=== PATIENT | male | born 1935 | race African-American/Black ===

== ENCOUNTER 2017-03-28 13:10 | Inpatient (IN) | payer MEDICARE, MEDICAID ==
[~2017-03-28] VITALS: Ht 172.7 cm; Wt 70.3 kg
[2017-03-29] VITALS (16 sets, daily range): BP systolic 106–122; BP diastolic 60–73
[2017-03-29] MEDS ORDERED: COMBIVENT RESPIM4 GM IH (02:00)
[2017-03-29] MEDS ORDERED: ALLOPURINOL300 M1 ORAL (02:01)
[2017-03-29] MEDS ORDERED: FLOMAX0.4 MG ORAL (02:04)
[2017-03-29] MEDS ORDERED: LOMOTIL TABLET1 EAC1 PO (02:09)
[2017-03-29] MEDS ORDERED: LOMOTIL TABLET1 EACH ORAL ×2 (02:10→02:12)
[2017-03-29] MEDS ORDERED: FUROSEMIDE40 MG ORAL (02:14)
[2017-03-29] MEDS ORDERED: NORCO 5-325 TA1 EACH ORAL (02:16)
[2017-03-29] MEDS ORDERED: BENAZEPRIL HCL40 MG ORAL (02:18)
[2017-03-29] MEDS ORDERED: METOPROLOL-HCT1 EAC3 ORAL (02:20)
[2017-03-29] MEDS ORDERED: ASPIR 8181 MG ORAL (02:21)
[2017-03-29] MEDS ORDERED: ADVAIR 250-501 EACH INH (02:25)
[2017-03-29 05:39] LABS: BASOPHILS % (AUTO) 0.7 % (0.0-2.0); LYMPHOCYTES % (AUTO) 27.4 % (20.0-45.0); MEAN CORPUSCULAR HEMOGLOBIN 29.2 PG (27.0-31.0); MEAN CORPUSCULAR HGB CONC 30.8 G/DL (32.0-36.0); MEAN CORPUSCULAR VOLUME 95 FL (80-99); MEAN PLATELET VOLUME 6.3 FL (6.5-10.1); NEUTROPHILS % (AUTO) 58.9 % (45.0-75.0); PLATELET COUNT 174 K/UL (150-450); RED BLOOD COUNT 3.48 M/UL (4.70-6.10); RED CELL DISTRIBUTION WIDTH 18.3 % (11.6-14.8)
[2017-03-29 05:51] LABS: INR 1.3 (0.9-1.1); PROTHROMBIN TIME 13.4 SEC (9.30-11.50)
[2017-03-29 05:54] LABS: ALANINE AMINOTRANSFERASE 13 U/L (3-41); ALBUMIN/GLOBULIN RATIO 1.3 (1.0-2.7); ANION GAP 14 (5-15); ASPARTATE AMINO TRANSFERASE 21 U/L (5-40); CALCIUM 9.3 mg/dL (8.6-10.2); CARBON DIOXIDE 26 mEQ/L (20-30); CHLORIDE 101 mEQ/L (98-107); CREATININE 2.2 mg/dL (0.7-1.2); HEMOLYSIS 3; POTASSIUM 3.6 mEQ/L (3.4-4.9); SODIUM 141 mEQ/L (135-145); TOTAL PROTEIN 6.5 g/dL (6.6-8.7)
[2017-03-29] MEDS ORDERED: ceFAZolin 1gm in D5W 55ml IVPB SCH (11:00)
--- NOTE | 2017-03-29 11:32 | Consultation ---
Consult Note Assessment/Plan Full note dictated #[id number] DANIELLE HENRY Mar 29, 2017 11:32
--- NOTE | 2017-03-29 11:33 | Pre-Procedure Note/Attestation ---
Pre-Procedure Note/Attestation Complete Prior to Procedure Planned Procedure: left Procedure Narrative: ICD gen replacement and possible lead revision ( RV lead) Indications for Procedure Pre-Operative Diagnosis: ICD at end of service/ lead malfunction Attestation I attest that I discussed the nature of the procedure; its benefits; risks and complications; and alternatives (and the risks and benefits of such alternatives ), prior to the procedure, with the patient (or the patient's legal labor union business representative). I attest that, if there was a reasonable possibility of needing a blood transfusion, the patient (or the patient's legal labor union business representative) was given the [place] Department [employer] [facility] standardized written summary, pursuant to the Atif Vick Blood Safety Act ([place] Health and Safety Code # 1645, as amended). I attest that I re-evaluated the patient just prior to the surgery and that there has been no change in the patient's H&P, except as documented below: none DANIELLE HENRY Mar 29, 2017 11:33
[2017-03-29] MEDS ORDERED: ceFAZolin sod 2 GM in D5W 110 ML IVPB PRN (12:00)
[2017-03-29] MEDS ORDERED: Sterile Water Irrig 1000ml IRRIG ONE (12:30)
[2017-03-29] MEDS ORDERED: LR 1000ml ONE (12:30)
[2017-03-29] MEDS ORDERED: Propofol 10mg/ml 100ml btl IV ONE (12:30)
[2017-03-29] MEDS ORDERED: Midazolam 2mg/2ml Inj ONE (12:30)
[2017-03-29] MEDS ORDERED: fentaNYL 100 mcg/2 mL IV ONE (12:30)
[2017-03-29] MEDS ORDERED: NS Irrig 1000ml ONE (12:30)
[2017-03-29] MEDS ORDERED: Bupivacaine 0.25% Inj 30ml INJ ONE (12:35)
[2017-03-29] MEDS ORDERED: Isovue-M 300 15ml INJ ONE (12:35)
[2017-03-29] MEDS ORDERED: Bacitracin 50000 Units Vial ONE (12:35)
[2017-03-29] MEDS ORDERED: Lidocaine 1% Plain 30 ml INJ ONE (12:37)
[2017-03-29] MEDS ORDERED: LR 1000ml 1,000 ML IVLG SCH (13:22)
[2017-03-29] MEDS ORDERED: ceFAZolin sod 1 GM in D5W 55 ML IV SCH (14:00)
--- NOTE | 2017-03-29 14:05 | Anethesia Preoperative Eval ---
Anesthesia Pre-op PMH/ROS General Date of Evaluation: Mar 29, 2017 Time of Evaluation: 12:36 Anesthesiologist: Kim ASA Score: ASA 3 Mallampati Score Class I : Soft palate, uvula, fauces, pillars visible Class II: Soft palate, uvula, fauces visible Class III: Soft palate, base of uvula visible Class IV: Only hard plate visible Mallampati Classification: Class II Surgeon: Christiano Diagnosis: Defibrillator malfunction Surgical Procedure: Replacement of defibrillator/pacemaker Family History: no anesthesia problems Allergies: Coded Allergies: No Known Allergies (Verified Allergy, Unknown, 01/15/11) Medications: see eMAR Past Medical History Cardiovascular: Reports: CAD, HTN, arrhythmia - s/p defibrillator/PPM Pulmonary: Denies: COPD, JUAN, asthma, other Gastrointestinal/Genitourinary: Denies: CRI, ESRD, GERD, other Neurologic/Psychiatric: Denies: CVA, TIA, dementia, depression/anxiety, other Endocrine: Denies: DM, hypothyroidism, other, steroids HEENT: Denies: SYCUAN (L), SYCUAN (R), cataract (L), cataract (R), glaucoma, other Hematology/Immune: Denies: DVT, anemia, bleeding disorder, other Musculoskeletal/Integumentary: Reports: DJD, OA, Denies: DDD, RA, edema, other PMH Narrative: CAD, dysrhythmia (s/p PPM/defibrillator), OA, gout PSxH Narrative: PPM, right THR Anesthesia Pre-op Phys. Exam Physician Exam Last Vital Signs Date Time Temp Pulse Resp B/P Pulse Ox O2 Delivery O2 Flow Rate FiO2 03/29/17 11:43 97.3 63 18 117/66 99 Room Air Constitutional: NAD Neurologic: CN 2-12 intact Cardiovascular: RRR, no M/R/G Respiratory: CTA Gastrointestinal: S/NT/ND Airway Exam Mallampati Score: Class II MO: full ROM: full Dentures: lower, upper Anesthesia Pre-op A/P Labs Hematology Test 03/29/17 05:30 White Blood Count 6.0 K/UL (4.8-10.8) Red Blood Count 3.48 M/UL (4.70-6.10) L Hemoglobin 10.2 G/DL (14.2-18.0) L Hematocrit 33.0 % (42.0-52.0) L Mean Corpuscular Volume 95 FL (80-99) Mean Corpuscular Hemoglobin 29.2 PG (27.0-31.0) Mean Corpuscular Hemoglobin Concent 30.8 G/DL (32.0-36.0) L Red Cell Distribution Width 18.3 % (11.6-14.8) H Platelet Count 174 K/UL (150-450) Mean Platelet Volume 6.3 FL (6.5-10.1) L Neutrophils (%) (Auto) 58.9 % (45.0-75.0) Lymphocytes (%) (Auto) 27.4 % (20.0-45.0) Monocytes (%) (Auto) 12.0 % (1.0-10.0) H Eosinophils (%) (Auto) 1.0 % (0.0-3.0) Basophils (%) (Auto) 0.7 % (0.0-2.0) Coagulation Test 03/29/17 05:30 Prothrombin Time 13.4 SEC (9.30-11.50) H Prothromb Time International Ratio 1.3 (0.9-1.1) H Activated Partial Thromboplast Time 28 SEC (23-33) Chemistry Test 03/29/17 05:30 Sodium Level 141 mEQ/L (135-145) Potassium Level 3.6 mEQ/L (3.4-4.9) Chloride Level 101 mEQ/L (98-107) Carbon Dioxide Level 26 mEQ/L (20-30) Anion Gap 14 (5-15) Blood Urea Nitrogen 40 mg/dL (7-23) H Creatinine 2.2 mg/dL (0.7-1.2) H Estimat Glomerular Filtration Rate mL/min (>60) Glucose Level 119 mg/dL (74-106) H Calcium Level 9.3 mg/dL (8.6-10.2) Total Bilirubin 0.4 mg/dL (0.0-1.2) Aspartate Amino Transf (AST/SGOT) 21 U/L (5-40) Alanine Aminotransferase (ALT/SGPT) 13 U/L (3-41) Alkaline Phosphatase 49 U/L (40-129) Pro-B-Type Natriuretic Peptide 5433 pg/mL (0-450) H Total Protein 6.5 g/dL (6.6-8.7) L Albumin 3.7 g/dL (3.5-5.2) Globulin 2.8 g/dL Albumin/Globulin Ratio 1.3 (1.0-2.7) Studies Pre-op Studies: EKG - SR with RBBB Risk Assessment & Plan Assessment: ASA 3 for defibrillator replacement Plan: MAC converted to GA with LMA Status Change Before Surgery: No Pre-Antibiotics Drug: Ancef Given Within 1 Hr of Incision: Yes Time Given: 13:00 HELADIO CARVAJAL M.D. Mar 29, 2017 14:05
--- NOTE | 2017-03-29 14:06 | Immediate Post-Op Evaluation ---
Immediate Post-Op Evalulation Immediate Post-Op Evalulation Procedure: Defibrillator/PPM replacement Date of Evaluation: Mar 29, 2017 Time of Evaluation: 15:10 IV Fluids: 550 Estimated Blood Loss: 20 Blood Pressure Systolic: 118 Blood Pressure Diastolic: 73 Pulse Rate: 74 Respiratory Rate: 20 O2 Sat by Pulse Oximetry: 100 Temperature (Fahrenheit): 97.1 Pain Score (1-10): 0 Nausea: No Vomiting: No Complications No complication Patient Status: reacts, patent, none Hydration Status: adequate Drug: Ancef Given Within 1 Hr of Incision: Yes Time Given: 13:00 HELADIO CARVAJAL M.D. Mar 29, 2017 14:06
[2017-03-29] MEDS ORDERED: Tylenol #3 tab (300mg/30mg) ORAL PRN (15:00)
--- NOTE | 2017-03-29 15:04 | Operative Note - PDOC ---
Operative Note Operative Note Pre-op Diagnosis: ICD at end of service/ lead malfunction Procedure: icd gen repl and lead revision Post-op Diagnosis: icd lead failure and gen at end of servic Post-op Diagnosis: same as pre-op Anesthesia: local, MAC, moderate sedation Specimen: yes Complications: none Condition: stable Estimated Blood Loss: minimal Drains: none Implant(s) used?: Yes Indications for Procedure icd at end of service and lead failure Description of Procedure see dictation DANIELLE HENRY Mar 29, 2017 15:04
[2017-03-29] MEDS: fentaNYL 100 mcg/2 mL IV PRN ×2 (15:26→15:45)
--- NOTE | 2017-03-29 16:45 | Consultation ---
DATE OF CONSULTATION: CARDIAC ELECTROPHYSIOLOGY CONSULT REASON FOR CONSULTATION: Consideration for ICD generator replacement and possible lead replacement. HISTORY OF PRESENT ILLNESS: The patient is an 82-year-old man with a history of nonischemic cardiomyopathy, systolic and diastolic dysfunction status post dual-chamber ICD ([facility]) in 2010. His device was recently checked as an outpatient after a vibratory alert was noted by the patient about one to two weeks ago. At that time, he was noted to have the device at elective replacement time. In addition, there was some over sensing of the ventricular leads. He is brought for device replacement and possible lead revision. He reports no complaint of shortness of breath, palpitations, lightheadedness or syncope. PAST MEDICAL HISTORY: As noted above. MEDICATIONS: Currently, the patient is unsure of medications however per the list he is on Vicodin one p.o. b.i.d., Combivent inhaler, allopurinol 300 mg daily, aspirin 81 mg daily, benazepril 40 mg daily, Lomotil p.r.n., Lasix 40 mg daily, hydrochlorothiazide 50 mg daily, metoprolol 25 mg b.i.d., Advair diskcus 250/50 one puff daily and Flomax 0.4 mg daily. ALLERGIES: No known drug allergies. SOCIAL HISTORY: The patient denies tobacco, alcohol, or drug use. PHYSICAL EXAMINATION: GENERAL: Alert, well-developed elderly appearing male, in no acute distress. VITAL SIGNS: Blood pressure is 106/66, pulse 64 and regular, respirations 20, and afebrile. HEENT: Normocephalic and atraumatic. Pupils are equal, round, and reactive to light. Sclerae anicteric. Oral mucosa are moist. NECK: Supple. There is no jugular venous distention. Carotid pulses 2+ without bruits. LUNGS: Clear to auscultation bilaterally. HEART: Regular S1 and S2 with a 2/6 systolic ejection murmur at the apex. Nonradiating. PMI is laterally displaced to the left of the midclavicular line. No S3 or S4. No rubs. ABDOMEN: Soft and nontender. No palpable mass. EXTREMITIES: No cyanosis, clubbing, or edema. LABORATORY AND DIAGNOSTIC DATA: Hemoglobin 10.2, hematocrit 33, white blood count 6000, and platelets 174,000. Sodium 141, potassium 3.6, chloride 101, bicarbonate 26, BUN 40 and creatinine 2.2. Natriuretic peptide 5433. INR 1.3 and PTT 28. EKG is pending. Telemetry shows sinus rhythm with first-degree AV block, rate of 70 beats per minute and nonspecific IVCD. Chest x-ray is pending. ASSESSMENT AND RECOMMENDATIONS: The patient is an 82-year-old man with nonischemic cardiomyopathy, status post implantable cardioverter-defibrillator placed in 2010, whose implantable cardioverter-defibrillator has reached end of service. In addition, there is noise noted on the ventricular lead suggesting over sensing. He may need lead revision as well. These procedures were explained to him and he is agreeable to proceeding. Mariama Olivo M.D. DR: HARLAN JOB#: [id number] CC:
--- NOTE | 2017-03-29 16:45 | Diagnostic Imaging Report ---
Indications: Shortness of breath Technique: Portable AP chest at 1601 Findings: Comparison: 0937 Cardiac silhouette remains enlarged. Pulmonary vasculature remains within normal limits. Lungs remain relatively clear. Mild bilateral costophrenic angle blunting persists. No pneumothorax or other new abnormality identified. IMPRESSION: No significant change from 7 hours prior--no evidence of pneumothorax
[2017-03-29] MEDS: ceFAZolin sod 1 GM in D5W 55 ML IVPB SCH (20:14)
[2017-03-29] MEDS: Heparin 5000 units/ml inj SUBQ SCH (20:16)
--- NOTE | 2017-03-29 22:00 | Operative Note - Dictated ---
DATE OF OPERATION: 03/29/2017 SURGEON: Mariama Olivo M.D. OPERATION PERFORMED: ICD generator replacement and ICD lead revision. INDICATION: ICD at end of service and lead failure. CLINICAL HISTORY: The patient is an 82-year-old man with a history of nonischemic cardiomyopathy, congestive heart failure, status post ICD placement in 2010 whose device has reached end of service. In addition, there is noise oversensing on the right ventricular lead, which resulted in inappropriate shocks. The newly implanted device is a [employer] Fortify Assura, serial number is [id number], model is IA0558. The chronically implanted atrial lead is a UnboundIDtronic 5076, serial number [id number]. This was implanted in 2010. The pacing threshold of this lead is 0.8 volts at 0.5 milliseconds. P waves are 1.8 to 2.3 millivolts. Lead impedance 403 ohms. In the ventricle, the newly placed defibrillating lead has a pacing threshold of 0.4 volts at 0.5 milliseconds, lead impedance 450 ohms, R-wave 5.3 millivolts, high-voltage lead impedance 39 ohms. The lead is a [employer] 7122 [address], serial number [id number]. The explanted device is a Biotronik Lumax 540R, serial number [id number], implanted on 03/05/2011. defibrillating lead, which was implanted on 03/05/2011 is a Bi[employer]ik Linox, model #31712, serial number [id number]. ANESTHESIA: Local and intravenous sedation. DESCRIPTION OF PROCEDURE: The patient was was brought to the operating room, received sedation as per the anesthesiologist, Dr. Alvarez. The left chest was sterilely prepped and draped in the usual manner. The skin and underlying soft tissues over the previous incision were infiltrated with 1% Xylocaine local anesthetic. An incision was made and this was carried down to the muscular capsule enclosing the generator. The generator was explanted. The leads were carefully dissected. Following this, a subclavian venipuncture was performed. A guidewire was advanced under fluoroscopy into the low right atrium. The 7-Tamazight safe sheath was advanced over the guidewire. The guidewire and dilator were removed, and the ventricular defibrillating lead was advanced, positioned in the right ventricular apex at a short distance away from the existing lead. Pacing and sensing thresholds were checked. The screw was then advanced under fluoroscopy and the thresholds were rechecked. The introducer was removed and the lead was secured with two nonabsorbable sutures via the suture sleeve. The pocket was flushed with antibiotic solution. The existing leads were removed from the old generator. The ventricular pacing and defibrillating leads were capped. The atrial lead was checked with results as noted above. The new generator is brought to the field after the pocket had been flushed with an antibiotic solution. The leads were attached to the new generator, atrial and ventricular pacing and defibrillating leads. The set screws were all tightened and checked. The leads and generator were placed into the submuscular pocket with the excess lead coiled beneath the generator. The incision was then closed with 0 silk for the muscle layer, 2-0 and 4-0 Monocryl for the more superficial layers, and a sterile dressing was applied. The patient tolerated the procedure well and there were no intraprocedural complications. Mariama Olivo M.D. DR: EBER JOB#: [id number] CC:
--- NOTE | 2017-03-30 00:15 | Progress Note ---
DATE: 03/29/2017 GENERAL CARDIOLOGY AND INTERNAL MEDICINE PROGRESS NOTE SUBJECTIVE: The patient was seen by Dr. Olivo. The patient underwent extraction of defective ventricular lead and replacement of generator with end of battery life. The procedure was uncomplicated. The patient now has minimal chest wall pain and shortness of breath. OBJECTIVE: VITAL SIGNS: Blood pressure 114/63, pulse 67, and respirations 18. Monitored rhythm is paced. Left chest wall with dressing in place. LUNGS: With diminished breath sounds. No rales. CARDIAC: Regular rhythm and rate. Normal S1. Paradoxically split S2. ABDOMEN: Soft. EXTREMITIES: Without edema. LABORATORY DATA: White count 6 and hemoglobin 10.2. Potassium 3.6, BUN 40, creatinine 2.2. Pro-natriuretic peptide is 5400. Chest x-ray revealed no pneumothorax, cardiomegaly, and known pulmonary venous congestion. IMPRESSION: 1. Chronic systolic and diastolic congestive heart failure. 2. Paroxysmal atrial fibrillation. 3. Nonsustained ventricular tachycardia. 4. Status post defibrillator. 5. Generator change and replacement of malfunctioning lead. 6. Hyperuricemia. 7. Chronic obstructive pulmonary disease. PLAN: 1. Pain control. 2. Postop wound care. 3. Optimize anti-failure regimen. 4. Mobilization as able. Andrew Long M.D. DR: RUBEN JOB#: [id number] CC:
--- NOTE | 2017-03-30 01:00 | History and Physical Report ---
DATE OF ADMISSION: 03/29/2017 REASON FOR ADMISSION: Defibrillator generator end of battery life and possible lead malfunction. HISTORY OF PRESENT ILLNESS: This is an 82-year-old male, who was seen in my office earlier today. He had two or three shocks from his defibrillator over the past few days and has never had prior shock. The device was interrogated and it appears that from lead malfunction may have resulted in inappropriate shock. Furthermore, the generator has reached end of battery life. PAST MEDICAL HISTORY: Includes chronic obstructive pulmonary disease, hypertensive heart disease, coronary artery disease, hyperuricemia, degenerative disk disease, and chronic systolic and diastolic congestive heart failure. MEDICATIONS: Prior to admission, reviewed and reconciled. ALLERGIES: None. SOCIAL HISTORY: Distant smoker. No alcohol or substance abuse. FAMILY HISTORY: Noncontributory. REVIEW OF SYSTEMS: No fevers or chills. No recent cough or upper respiratory infection. He has been on inhaled steroids and occasional inhaled beta agonists. His most recent echocardiogram revealed mildly depressed ejection fraction of 45% with global hypokinesis and mild degenerative valve disease. There is no history of flow-limiting coronary disease. He does have a history of paroxysmal atrial fibrillation and non-sustained ventricular ectopy. There is no history of seizures or stroke. He does have a history of gout. He is on therapy for his hyperuricemia. He has been on anti-lipid drugs for hyperlipidemia. There is no history of diabetes or thyroid impairment. He does have mild chronic kidney disease due to nephrosclerosis. There is no history of prostate cancer or elevated PSA. He has not had any change in bowel habits, melena, or bright red blood per rectum. PHYSICAL EXAMINATION: GENERAL: The patient is a well developed and well nourished thin male in no acute distress. VITAL SIGNS: Blood pressure 105/60, pulse 60, respirations 20, and afebrile. Mild temporal wasting. Arcus senilis. Oropharynx clear. NECK: Supple. Jugular venous pressure normal. LUNGS: Clear. CARDIAC: Regular rhythm and rate. Normal S1 and paradoxically split S2. A 1/6 systolic ejection murmur at the base. ABDOMEN: Soft and nontender. EXTREMITIES: No edema. NEUROLOGIC: Nonfocal. LABORATORY DATA: Labs are pending. IMPRESSION: 1. Defibrillator discharge is possibly due to lead malfunction. 2. Defibrillator generator end of battery life. 3. Cardiomyopathy, multifactorial. 4. Chronic systolic and diastolic congestive heart failure. 5. Chronic obstructive pulmonary disease. PLAN: 1. EP consultation. 2. Probable lead explantation and generator replacement. 3. Followup laboratory studies. 4. Titrate anti-failure regimen. Andrew Long M.D. DR: RUBEN JOB#: [id number] CC:
[2017-03-30 04:00] VITALS: BP 125/71
[2017-03-30 07:54] VITALS: BP 121/71
[2017-03-30 07:58] LABS: BASOPHILS % (AUTO) 0.4 % (0.0-2.0); EOSINOPHILS % (AUTO) 0.1 % (0.0-3.0); LYMPHOCYTES % (AUTO) 13.9 % (20.0-45.0); MEAN CORPUSCULAR HGB CONC 30.8 G/DL (32.0-36.0); MEAN CORPUSCULAR VOLUME 94 FL (80-99); MONOCYTES % (AUTO) 7.3 % (1.0-10.0); NEUTROPHILS % (AUTO) 78.4 % (45.0-75.0); PLATELET COUNT 166 K/UL (150-450); RED CELL DISTRIBUTION WIDTH 17.8 % (11.6-14.8); WHITE BLOOD COUNT 8.3 K/UL (4.8-10.8)
[2017-03-30 08:13] LABS: ALANINE AMINOTRANSFERASE 9 U/L (3-41); ALBUMIN/GLOBULIN RATIO 1.3 (1.0-2.7); ANION GAP 14 (5-15); ASPARTATE AMINO TRANSFERASE 18 U/L (5-40); CALCIUM 9.3 mg/dL (8.6-10.2); CARBON DIOXIDE 28 mEQ/L (20-30); CHLORIDE 100 mEQ/L (98-107); CREATININE 1.8 mg/dL (0.7-1.2); HEMOLYSIS 9; MAGNESIUM 1.9 mg/dL (1.7-2.5); POTASSIUM 4.6 mEQ/L (3.4-4.9); SODIUM 142 mEQ/L (135-145); TOTAL PROTEIN 6.6 g/dL (6.6-8.7)
[2017-03-30] MEDS: ceFAZolin sod 1 GM in D5W 55 ML IVPB SCH ×2 (09:00→21:20)
[2017-03-30] MEDS: Heparin 5000 units/ml inj SUBQ SCH ×2 (09:02→21:21)
[2017-03-30 11:30] VITALS: BP 129/74
--- NOTE | 2017-03-30 14:30 | 48 Hour Post Anesthesia Eval ---
Post Anesthesia Evaluation Procedure: Defibrillator/PPM replacement Date of Evaluation: Mar 30, 2017 Time of Evaluation: 14:29 Blood Pressure Systolic: 132 0: 76 Pulse Rate: 62 Respiratory Rate: 20 Temperature (Fahrenheit): 97.6 O2 Sat by Pulse Oximetry: 98 Airway: patent Nausea: No Vomiting: No Pain Intensity: 2 Hydration Status: adequate Cardiopulmonary Status: stable Mental Status/LOC: patient returned to baseline Follow-up Care/Observations: n/a Post-Anesthesia Complications: none Follow-up care needed: N/A LUPE ROMERO M.D. Mar 30, 2017 14:30
[2017-03-30 16:07] VITALS: BP 125/75
--- NOTE | 2017-03-30 16:44 | Diagnostic Imaging Report ---
Indication: Intraoperative, during pacemaker generator replacement Technique: Digital intraoperative images Comparison: None Findings: Intraoperative image demonstrates left chest open surgical wound, AICD leads. A single venographic image demonstrates what appears to be patency of the left axillary, subclavian, and innominate veins. These are not sufficiently opacified to assess for degree of stenosis, however. Impression: Intraoperative imaging, as described
[2017-03-30 20:00] VITALS: BP 129/84
[2017-03-31] VITALS: BP 117/73
--- NOTE | 2017-03-31 03:00 | Progress Note ---
DATE: 03/30/2017 CARDIOLOGY PROGRESS NOTE: SUBJECTIVE: The patient is status post defibrillator generator change and lead replacement yesterday. No complications were noted. The patient still has some left chest wall pain and limitations of use with regard to using his left arm. The patient is afebrile. His appetite seems to have improved. OBJECTIVE: VITAL SIGNS: Blood pressure 125/75, pulse 76, respirations 20, monitored rhythm sinus with demand pacing. CHEST: Left chest wall dressing removed. Defibrillator implant site is without any erythema or drainage. LUNGS: Clear. CARDIAC: Regular rhythm and rate. Normal S1, paradoxically split S2. No murmur. ABDOMEN: Soft. EXTREMITIES: Without edema. LABORATORY DATA: BUN and creatinine improved to 32/1.8, and potassium 4.6. Hemoglobin 11. IMPRESSION: 1. Implantable cardioverter-defibrillator generator end of battery life status post replacement. 2. Acute on chronic renal injury due to acute tubular necrosis, improving. 3. Chronic systolic and diastolic congestive heart failure. 4. Hypertensive heart disease. 5. Chronic obstructive pulmonary disease. 6. Anemia of chronic kidney disease. PLAN: Pain control. Mobilization. Fall precautions. Continue to encourage oral fluid intake. Follow up renal parameters. Discharge planning. Andrew Long M.D. DR: Jovany JOB#: [id number] CC:
[2017-03-31 04:00] VITALS: BP 117/78
[2017-03-31 08:00] VITALS: BP 113/68
[2017-03-31 08:12] LABS: BASOPHILS % (AUTO) 0.8 % (0.0-2.0); EOSINOPHILS % (AUTO) 0.3 % (0.0-3.0); LYMPHOCYTES % (AUTO) 17.9 % (20.0-45.0); MEAN CORPUSCULAR HEMOGLOBIN 31.3 PG (27.0-31.0); MEAN CORPUSCULAR HGB CONC 32.7 G/DL (32.0-36.0); MEAN CORPUSCULAR VOLUME 96 FL (80-99); MEAN PLATELET VOLUME 6.1 FL (6.5-10.1); MONOCYTES % (AUTO) 10.5 % (1.0-10.0); NEUTROPHILS % (AUTO) 70.5 % (45.0-75.0); PLATELET COUNT 152 K/UL (150-450); RED BLOOD COUNT 3.47 M/UL (4.70-6.10); RED CELL DISTRIBUTION WIDTH 17.3 % (11.6-14.8); WHITE BLOOD COUNT 8.3 K/UL (4.8-10.8)
[2017-03-31 08:15] LABS: ANION GAP 14 (5-15); CALCIUM 9.2 mg/dL (8.6-10.2); CARBON DIOXIDE 28 mEQ/L (20-30); CHLORIDE 97 mEQ/L (98-107); CREATININE 1.6 mg/dL (0.7-1.2); HEMOLYSIS 3; POTASSIUM 4.4 mEQ/L (3.4-4.9); SODIUM 139 mEQ/L (135-145)
[2017-03-31] MEDS: ceFAZolin sod 1 GM in D5W 55 ML IVPB SCH (08:40)
[2017-03-31] MEDS: Heparin 5000 units/ml inj SUBQ SCH (08:45)
[2017-03-31 12:00] VITALS: BP 112/76
[2017-03-31] MEDS ORDERED: Tubing IV Secondary IV ONE (15:39)
[2017-03-31] MEDS ORDERED: NS 275ml ONE (15:39)
--- NOTE | 2017-04-01 09:35 | Discharge Summary ---
Discharge Summary Hospital Course Date of Admission Mar 29, 2017 at 00:08 Date of Discharge Mar 31, 2017 at 15:40 Admitting Diagnosis HPI Vinod Brewster is a 82 year old male who was admitted on Mar 29, 2017 at 00:08 for Defibrillator [place] Hospital Course [id number] Discharge Discharge Disposition Patient was discharged to Home (01) Discharge Diagnoses: Valentine Schumacher NP Apr 01, 2017 09:35
--- NOTE | 2017-04-01 10:45 | Diagnostic Imaging Report ---
Indications: Cough Technique: PA and lateral chest Findings: Comparison: 05/22/2015 Lungs remain symmetrically hyperinflated with flattening of the diaphragms, somewhat more prominent than on previous exam. Lateral view demonstrates blunting of both posterior costophrenic sulci with suggestion of focal parenchymal opacity adjacent, not seen on frontal view. Cardiac silhouette has apparently increased in size. Pulmonary vasculature remains within normal limits. Aortic arch calcification, left chest wall pacemaker again noted. IMPRESSION: Findings compatible with COPD, apparently more prominent than on previous exam. Whether this represents chronic progression of disease or superimposed acute air-trapping cannot be differentiated. Correlate clinically. Bilateral posterior costophrenic angle sulcus blunting most likely secondary to diaphragmatic flattening. Pleural disease not excludable. Adjacent focal parenchymal pathology not excludable, nonspecific if real Apparent progression of cardiomegaly/cardiomyopathy
--- NOTE | 2017-04-01 13:19 | Cardiology Report ---
APPROVED REPORT EKG Measurement Heart [id number] Normal sinus rhythm Nonspecific intraventricular block T wave abnormality, consider lateral ischemia Abnormal ECG
--- NOTE | 2017-04-01 21:45 | Discharge Summary 2 SIG ---
DATE OF ADMISSION: 03/29/2017 DATE OF DISCHARGE: 03/31/2017 [employer] ASSEM[employer]ER: Mariama Olivo M.D. BRIEF HOSPITAL COURSE: The patient is a 82-year-old male who had two to three shocks from his defibrillator for the past day who underwent pacemaker interrogation that showed lead malfunction that may have resulted in inappropriate shocks and the generator has reached end of battery life. The patient was admitted and was followed by Dr. Olivo. On 03/29/2017, he underwent new [employer] defibrillator generator change with lead placement. There were no complications noted and postoperatively had some pain on the left chest wall, advised limitations with the use of left arm post surgery. He was also noted to have an elevated creatinine which eventually improved. He was discharged home to follow up as outpatient. FINAL DIAGNOSES: 1. Implantable cardioverter-defibrillator generator end of battery life status post replacement. 2. Acute on chronic renal failure due to acute tubular necrosis. 3. Chronic systolic and diastolic congestive heart failure. 4. Hypertensive heart disease. 5. Chronic obstructive pulmonary disease. 6. Anemia of chronic kidney disease. Andrew Long M.D. I have been assigned to dictate discharge summary on this account and I was not involved in the patient's management. Valentine Schumacher N.P. DR: Karen JOB#: [id number] CC:
== END 2017-03-31 15:40 | disposition home or self-care (01) | DRG 226 ==
LOC: 2E 03-29 00:08
PROC: 02HL3KZ Insertion of Defibrillator Lead into Left Ventricle, Percutaneous Approach (ICD-10-PCS; principal; 2017-03-29 12:30)
PROC: 0JPT0PZ Removal of Cardiac Rhythm Related Device from Trunk Subcutaneous Tissue and Fascia, Open Approach (ICD-10-PCS; principal; 2017-03-29 12:30)
PROC: 02PA0MZ Removal of Cardiac Lead from Heart, Open Approach (ICD-10-PCS; principal; 2017-03-29 12:30)
PROC: 0JH608Z Insertion of Defibrillator Generator into Chest Subcutaneous Tissue and Fascia, Open Approach (ICD-10-PCS; principal; 2017-03-29 12:30)
DX: T82.110A Breakdown (mechanical) of cardiac electrode, initial encounter (principal); N17.0 Acute kidney failure with tubular necrosis; I50.42 Chronic combined systolic (congestive) and diastolic (congestive) heart failure; I13.0 Hypertensive heart and chronic kidney disease with heart failure and stage 1 through stage 4 chronic kidney disease, or unspecified chronic kidney disease; I42.9 Cardiomyopathy, unspecified; J44.9 Chronic obstructive pulmonary disease, unspecified; I25.10 Atherosclerotic heart disease of native coronary artery without angina pectoris; M10.9 Gout, unspecified; E78.5 Hyperlipidemia, unspecified; N18.9 Chronic kidney disease, unspecified; D63.1 Anemia in chronic kidney disease; Z79.82 Long term (current) use of aspirin; Y83.8 Other surgical procedures as the cause of abnormal reaction of the patient, or of later complication, without mention of misadventure at the time of the procedure; Y92.89 Other specified places as the place of occurrence of the external cause
CPT/HCPCS: 36415; 71010; 71020; 76001; 80048; 80053; 83735; 83880; 85025; 85610; 85730; 93005; 94003; 94150; J2250; J2405; J8499

== ENCOUNTER 2017-08-05 12:21 | Inpatient (IN) | payer MEDICARE, MEDICAID ==
[~2017-08-05] VITALS: Ht 167.6 cm; Wt 74.4 kg
[~2017-08-05 12:21] MED LIST: ADVAIR 250-501 EACH INH; ALLOPURINOL300 M1 ORAL; ASPIR 8181 MG ORAL; BENAZEPRIL HCL40 MG ORAL; COMBIVENT RESPIM4 GM IH; FLOMAX0.4 MG ORAL; FUROSEMIDE40 MG ORAL; LOMOTIL TABLET1 EAC1 PO; LOMOTIL TABLET1 EACH ORAL; METOPROLOL-HCT1 EAC3 ORAL; NORCO 5-325 TA1 EACH ORAL
[2017-08-06] MEDS ORDERED: Norco 5mg/325mg tab ORAL PRN (02:15)
[2017-08-06 04:00] VITALS: BP 120/78
[2017-08-06] MEDS: Albuterol/Ipratropium 3ml neb HHN SCH ×3 (07:00→19:00)
[2017-08-06 07:56] LABS: EOSINOPHILS % (AUTO) 1.1 % (0.0-3.0); LYMPHOCYTES % (AUTO) 27.1 % (20.0-45.0); MEAN CORPUSCULAR HEMOGLOBIN 30.7 PG (27.0-31.0); MEAN CORPUSCULAR HGB CONC 31.5 G/DL (32.0-36.0); MEAN CORPUSCULAR VOLUME 97 FL (80-99); NEUTROPHILS % (AUTO) 57.8 % (45.0-75.0); PLATELET COUNT 173 K/UL (150-450); RED BLOOD COUNT 3.52 M/UL (4.70-6.10); RED CELL DISTRIBUTION WIDTH 15.9 % (11.6-14.8); WHITE BLOOD COUNT 5.1 K/UL (4.8-10.8)
[2017-08-06 08:00] VITALS: BP 117/72
[2017-08-06] MEDS: Aspirin Baby 81mg ORAL SCH (08:43)
[2017-08-06 08:47] LABS: ALANINE AMINOTRANSFERASE 22 U/L (12-78); ANION GAP 9 mmol/L (5-15); ASPARTATE AMINO TRANSFERASE 25 U/L (15-37); CALCIUM 8.8 MG/DL (8.5-10.1); CARBON DIOXIDE 24 MMOL/L (21-32); CHLORIDE 110 MMOL/L (98-107); MAGNESIUM 1.8 MG/DL (1.8-2.4); POTASSIUM 3.9 MMOL/L (3.5-5.1); SODIUM 143 MMOL/L (136-145); TOTAL PROTEIN 5.5 G/DL (6.4-8.2)
--- NOTE | 2017-08-06 11:28 | Diagnostic Imaging Report ---
Indication: Abnormal breath sounds Comparison: 03/29/17 2 views of the chest obtained. Lungs are hyperexpanded but appear clear. Moderate to severe cardiac enlargement noted. There is calcific issues of aorta. There is a pacemaker on the left noted. Bones are osteopenic. Impression: COPD. Cardiomegaly Pacemaker Osteopenia
[2017-08-06 12:00] VITALS: BP 116/69
[2017-08-06 16:00] VITALS: BP 116/77
--- NOTE | 2017-08-06 16:17 | Consultation ---
Consult Note Consult Note Cardiac EP Full consult dictated # [id number] DANIELLE HENRY Aug 06, 2017 16:17
[2017-08-06 20:00] VITALS: BP 106/60
[2017-08-06] MEDS: Tamsulosin 0.4mg cap ORAL SCH (21:10)
[2017-08-06] MEDS: Heparin 5000 units/ml inj SUBQ SCH (21:12)
--- NOTE | 2017-08-06 21:30 | Consultation ---
DATE OF CONSULTATION: CARDIAC ELECTROPHYSIOLOGY CONSULTATION REQUESTING PHYSICIAN: Andrew Long M.D. REASON FOR CONSULT: ICD malfunction. HISTORY OF PRESENT ILLNESS: The patient is an 82-year-old man with a history of nonischemic cardiomyopathy status post dual-chamber ICD placement in 2010 and recent generator replacement and lead revision (over sensing on right ventricular lead) in 03/2017. Over the past few weeks, he has had two ICD shocks. He had no associated palpitations, dizziness, or chest pain. He had no syncope. He reports having increasing exertional dyspnea over the past several weeks and increased peripheral edema over the past two to three weeks. PAST MEDICAL HISTORY: As noted above. Also, history of hypertension and COPD. MEDICATIONS: Subcutaneous heparin 5000 units subcutaneously every 12 hours, Flomax 0.4 mg at bedtime, allopurinol 300 mg daily, aspirin 81 mg p.o. daily, Lasix 40 mg IV daily, Lotensin 40 mg p.o. daily, DuoNeb nebulizer every six hours p.r.n., and [place] 5/325 mg q.4 h. p.r.n. ALLERGIES: No known drug allergies. SOCIAL HISTORY: The patient is a nonsmoker and does not drink alcohol. PHYSICAL EXAMINATION: VITAL SIGNS: Blood pressure is 116/70, pulse 80 and regular, respirations 20, afebrile and oxygen saturation 94% to 96% on room air. GENERAL: Alert, thin elderly appearing male, in no acute distress. HEENT: Normocephalic and atraumatic. Pupils are equal, round, and reactive to light. Bilateral arcus senilis. Oral mucosa moist. NECK: Supple. There is no jugular venous distention. Carotid pulses are 2+ bilaterally without bruits. LUNGS: Right basilar rales. Left clear. HEART: Regular S1 and S2. No murmurs, rubs, S3, or S4. ABDOMEN: Soft and nontender. No palpable mass. EXTREMITIES: There is 2 to 3+ pitting pedal and ankle edema bilaterally. NEUROLOGIC: No gross focal motor deficits. LABORATORY AND DIAGNOSTIC DATA: Hemoglobin 10.8, white blood count 5100, and platelets 173,000. Sodium 143, potassium 3.9, BUN 35, and creatinine 2.0. ProBNP 14,381. Chest x-ray shows cardiomegaly and two defibrillating leads, one of which has dislodged into the right atrium. There is also an atrial pacing lead in the right atrial appendage. EKG is pending. Telemetry shows sinus rhythm with intact AV conduction and occasional under sensing with ventricular pacing spikes without capture. ASSESSMENT AND RECOMMENDATIONS: The patient is an 82-year-old man with a history of nonischemic cardiomyopathy, class 2 to 3 congestive heart failure status post dual-chamber ICD placement in 2010 with generator replacement and lead replacement for over sensing in 03/2017. He now has evidence for dislodgement of the right ventricular lead into the atrium, which resulted in inappropriate shocks. I reviewed the previous device interrogation and it appears that he had an inappropriate ICD shock for an atrial tachycardia on 07/31/2017 at 6:10 p.m. This inappropriate shock occurred following unsuccessful antitachycardia pacing. I would favor ICD lead repositioning once his heart failure status has been optimized. I discussed the nature of the procedure with him including potential risks and benefits. He understands and agrees to proceed. Mariama Olivo M.D. DR: HARLAN JOB#: [id number] CC:
[2017-08-07 00:23] VITALS: BP 109/66
[2017-08-07] MEDS: Albuterol/Ipratropium 3ml neb HHN SCH ×4 (01:00→19:30)
--- NOTE | 2017-08-07 03:30 | Progress Note ---
DATE: 08/06/2017 CARDIOLOGY PROGRESS NOTE SUBJECTIVE: The patient was seen in my office yesterday. Hospitalization was arranged. He arrived late last evening. He has not had any new defibrillator shock. The patient was seen and evaluated with Dr. Olivo earlier. Plan of care discussed. The patient's chest x-ray does confirm ventricular lead dislodgement. OBJECTIVE: VITAL SIGNS: Blood pressure 106/60, pulse 70, and respirations 20. NECK: Mild jugular venous distention. LUNGS: Diminished breath sounds. HEART: Regular rhythm and rate. Normal S1 and paradoxically split S2. A 1/6 systolic apical murmur. ABDOMEN: Soft. EXTREMITIES: A 1+ pitting edema. LABORATORY DATA: Labs noted. IMPRESSION: 1. Cardiac defibrillator. 2. Lead dislodgement. 3. Possible ventricular arrhythmia versus inappropriate shock. 4. Paroxysmal atrial fibrillation. 5. Acute and chronic systolic and diastolic congestive heart failure. PLAN: 1. Turn off ventricular lead activity to prevent inappropriate shocks. Lead revision will be arranged. 2. Hold amiodarone. 3. Continue beta-manuel. 4. Optimize volume status with diuresis and anti-failure regimen titration. 5. DVT prophylaxis. Andrew Long M.D. DR: RUBEN JOB#: [id number] CC:
[2017-08-07 04:00] VITALS: BP 111/74
[2017-08-07 08:15] VITALS: BP 121/71
[2017-08-07] MEDS: Aspirin Baby 81mg ORAL SCH (09:00)
[2017-08-07] MEDS ORDERED: Tubing IV Secondary IV ONE (09:34)
[2017-08-07] MEDS: Heparin 5000 units/ml inj SUBQ SCH ×2 (09:51→20:37)
[2017-08-07 11:41] VITALS: BP 103/69
--- NOTE | 2017-08-07 12:00 | Consultation ---
DATE OF CONSULTATION: August 05, 2017 CARDIOLOGY CONSULTATION REQUESTING PHYSICIAN: Alexis Kaufman M.D. REASON FOR CONSULTATION: Defibrillator discharge. HISTORY OF PRESENT ILLNESS: This 82-year-old male has a nonischemic cardiomyopathy and a cardiac defibrillator, which was recently replaced due to generator end-of-life. The patient has fared well up until the last few weeks where he has had a few shocks, most recently yesterday. Interrogation of the device revealed that the ventricular lead was possibly dislodged. It is unclear whether the patient was shocked appropriately for ventricular arrhythmias or inappropriately for atrial fibrillation. With increased frequency of shocks, amiodarone was empirically started recently, however, current consideration of lead dislodgement may not warrant continuation of this therapy. PAST MEDICAL HISTORY: COPD, hypertensive heart disease, coronary artery disease, hyperuricemia, degenerative disk disease, chronic systolic and diastolic congestive heart failure, hyperlipidemia, chronic kidney disease, cardiac defibrillator, paroxysmal atrial fibrillation, and history of ventricular arrhythmias. MEDICATIONS: Prior to admission are reviewed and reconciled. ALLERGIES: None. SOCIAL HISTORY: Distant smoker. No alcohol or substance abuse. FAMILY HISTORY: Noncontributory. REVIEW OF SYSTEMS: No fevers or chills. No recent upper respiratory infection. He has been on inhaled steroids on occasion, but not recently. He had an outpatient echocardiogram within the last six months revealing ejection fraction of about 45% with global hypokinesis and mild degenerative valve disease. There is no history of flow-limiting coronary disease. He has a history of paroxysmal atrial fibrillation. He is not on anticoagulation due to increased [id number] ratio. There is no history of seizure or stroke, but he does have cerebrovascular atherosclerosis. There is a prior history of gout. No recent attacks. He is on therapy for hyperuricemia. He has a history of hyperlipidemia and is on anti-lipid drugs. There is no history of prostate cancer or elevated PSA. He has not had any change in bowel habits. There is no history of diabetes or thyroid impairment. The patient has nephrosclerosis with chronic kidney disease, stage 2. PHYSICAL EXAMINATION: GENERAL: Appears stated age. No distress. VITAL SIGNS: Blood pressure 112/58 and pulse 78, respiratory rate 18, and afebrile. HEENT: Temporal wasting. Pale conjunctivae. Arcus senilis. Oropharynx clear. NECK: Supple. No jugular venous distention. LUNGS: Diminished breath sounds. No wheezing. Chest wall with ICD pocket site clean and dry. CARDIAC: Regular rhythm and rate. Normal S1, paradoxically split S2. A 1/6 systolic murmur at apex. Point of maximum impulse laterally displaced. ABDOMEN: Soft and nontender. EXTREMITIES: Good pulses. There is 1+ bilateral lower extremity pitting edema. NEUROLOGIC: Nonfocal. IMPRESSION: 1. Defibrillator discharge, possible left ventricular response and possible ventricular lead dislodgement, possible ventricular arrhythmias. 2. Paroxysmal atrial fibrillation. 3. Cardiomyopathy, acute on chronic diastolic and systolic congestive heart failure. PLAN OF CARE: Cardiac monitoring. EP consultation. Chest x-ray to evaluate the lead position. Diuresis. Optimization of anti-failure regimen and clinical parameters in anticipation of EP study and lead revision. Hold amiodarone at this time. Andrew Long M.D. DR: HECTOR JOB#: [id number] CC: ROBYN
--- NOTE | 2017-08-07 15:38 | Cardiac Electrophysiology PN ---
Assessment/Plan Status: stable, progressing Status Narrative Mr. Brewster has dilated cm, CHF and is s/p ICD lead and generator replacement. He has a dislodged ICD lead. He was adm following inappropriate shocks and in chf Assessment/Plan The ICD will be turned off, including pacing (to avoid R on T pacing/ He is not pacer-dependent) He will be scheduled for ICD lead revision. d/w Dr. Long Subjective ROS Limited/Unobtainable: No Subjective Mr. Brewster reports improvement in dyspnea, edema Objective Last 24 Hour Vital Signs Date Time Temp Pulse Resp B/P (MAP) Pulse Ox O2 Delivery O2 Flow Rate FiO2 08/07/17 13:39 72 16 Room Air 08/07/17 13:30 73 16 98 Room Air 08/07/17 11:41 97.7 65 18 103/69 99 Room Air 08/07/17 09:40 121/71 08/07/17 08:15 97.5 70 18 121/71 100 Room Air 08/07/17 07:41 74 16 Room Air 08/07/17 07:30 70 16 97 Room Air 08/07/17 04:00 67 08/07/17 04:00 97.5 65 16 111/74 98 Room Air 08/07/17 01:05 Room Air 08/07/17 01:05 Room Air 08/07/17 00:23 98.0 16 109/66 98 Room Air 08/07/17 00:00 73 08/06/17 20:00 71 08/06/17 20:00 98.0 70 16 106/60 98 Room Air 08/06/17 19:37 66 16 Room Air 08/06/17 19:37 Room Air 08/06/17 19:37 Room Air 08/06/17 16:00 97.7 80 18 116/77 98 Room Air 08/06/17 16:00 66 General Appearance: WD/WN, no apparent distress, alert EENT: PERRL/EOMI Neck: no JVD Rhythm: NSR Cardiovascular: normal rate, regular rhythm, systolic murmur - ii /vi JIMMY along LSB . No s3 Respiratory/Chest: lungs clear Abdomen: normal bowel sounds, non tender, soft Extremities: moderate edema - 2+ pedal and ankle edema. Neurologic: alert, oriented x 3 Intake and Output 08/07/17 08/08/17 19:00 07:00 Intake Total 120 ml Balance 120 ml Intake Oral 120 ml # Voids 1 DANIELLE HENRY Aug 07, 2017 15:38
[2017-08-07 15:47] VITALS: BP 110/65
--- NOTE | 2017-08-07 17:22 | Cardiology Report ---
APPROVED REPORT EKG Measurement Heart [id number] Sinus rhythm with 1st degree AV block Left axis deviation Nonspecific intraventricular block T wave abnormality, consider lateral ischemia Abnormal ECG
--- NOTE | 2017-08-07 18:45 | History and Physical Report ---
DATE OF ADMISSION: 08/06/2017 CHIEF COMPLAINT: Possible pacemaker malfunction. HISTORY OF PRESENT ILLNESS: The patient is a pleasant, 82-year-old male. He has a history of conduction system disease, status post pacemaker. He was admitted with concern about a possible pacemaker lead dislodgement that was noted on chest x-ray. The patient is otherwise without complaints. Denies any dizziness. No fevers. No chills. No shortness of breath. No heart palpitations. PAST MEDICAL HISTORY: Significant for history of conduction system disease, paroxysmal atrial fibrillation, history of hypertension, CHF, and COPD. PAST SURGICAL HISTORY: Includes a pacemaker. CURRENT MEDICATIONS: Reconciled and reviewed. ALLERGIES: None. SOCIAL HISTORY: The patient is a prior smoker. No alcohol. No drugs. FAMILY HISTORY: None. REVIEW OF SYSTEMS: GENERAL: No fever or chills. HEENT: No headaches or visual changes. CARDIOPULMONARY: No chest pain or shortness of breath. GASTROINTESTINAL: No nausea or vomiting. GENITOURINARY: No urgency or frequency. MUSCULOSKELETAL: No joint pain or swelling. NEUROLOGIC: No history of seizures. PHYSICAL EXAMINATION: VITAL SIGNS: Temperature 98 degrees, blood pressure 121/71, pulse 70, and respirations 18. GENERAL: The patient is a well-developed male, in no apparent distress. HEART: Regular rate and rhythm. LUNGS: Clear. ABDOMEN: Soft, nontender, and nondistended. EXTREMITIES: Without clubbing, cyanosis, or edema. LABORATORY AND DIAGNOSTIC DATA: Labs show white count of 5, hemoglobin 10, hematocrit 34, and platelets of 173. Sodium 143, potassium 3.9, chloride 110, bicarbonate 24, BUN 35, and creatinine was 2. Natriuretic peptide level is 1400. Chest x-ray shows cardiomegaly, pacemaker. ASSESSMENT: This is a pleasant male, who has history of conduction system disease, status post pacemaker. He is admitted for possible pacemaker lead dislodgement. 1. Pacemaker lead dislodgement. 2. Chronic obstructive pulmonary disease. 3. Congestive heart failure. 4. Hypertension. 5. Chronic kidney disease. PLAN: Cardiology followup. Continue current cardiac regimen. Monitor renal function. Cautious diuresis. Pacemaker lead placement. Alexis Kaufman M.D. DR: Jeor JOB#: [id number] CC:
[2017-08-07 20:00] VITALS: BP 109/67
[2017-08-07] MEDS: Tamsulosin 0.4mg cap ORAL SCH (20:34)
[2017-08-08] VITALS: BP 120/77
[2017-08-08] MEDS: Albuterol/Ipratropium 3ml neb HHN SCH ×4 (01:00→19:44)
[2017-08-08 04:00] VITALS: BP 123/71
--- NOTE | 2017-08-08 04:15 | Progress Note ---
DATE: 08/06/2017 CARDIOLOGY PROGRESS NOTE SUBJECTIVE: The patient was seen and evaluated. Case discussed with Dr. Olivo. Defibrillator function was turned off. The patient's ventricular lead is dislodged. He has had inappropriate shocks as a result. OBJECTIVE: VITAL SIGNS: Blood pressure 120/77, pulse 72, respirations 18, and afebrile. NECK: Supple. LUNGS: Clear. CARDIAC: Regular. Normal S1, S2. ABDOMEN: Soft. EXTREMITIES: With 1+ dependent edema. IMPRESSION: 1. Defibrillator lead malfunction. 2. Acute on chronic systolic and diastolic congestive heart failure. 3. Hypertensive heart disease. 4. Chronic kidney disease. PLAN: 1. Diuresis. 2. Optimize anti-failure regimen. 3. Ventricular lead revision. 4. Respiratory hygiene. Andrew Long M.D. DR: NORM JOB#: [id number] CC:
--- NOTE | 2017-08-08 07:59 | General Progress Note ---
Assessment/Plan Problem List: (1) AICD malfunction ICD Codes: T82.118A - Breakdown (mechanical) of other cardiac electronic device , initial encounter SNOMED: [id number] Status: stable Assessment/Plan tele await pacer lead change/revision. Subjective ROS Limited/Unobtainable: No Constitutional: Reports: malaise, weakness HEENT: Reports: no symptoms Cardiovascular: Reports: no symptoms Respiratory: Reports: no symptoms Gastrointestinal/Abdominal: Reports: no symptoms Genitourinary: Reports: no symptoms Neurologic/Psychiatric: Reports: no symptoms Endocrine: Reports: no symptoms Hematologic/Lymphatic: Reports: no symptoms Allergies: Coded Allergies: No Known Allergies (Verified Allergy, Unknown, 01/15/11) All Systems: reviewed and negative except above Subjective no complaints. no dizziness or chest pain no palpitations. cards and ep noted. . Objective Last 24 Hour Vital Signs Date Time Temp Pulse Resp B/P (MAP) Pulse Ox O2 Delivery O2 Flow Rate FiO2 08/08/17 04:00 76 08/08/17 04:00 97.7 83 18 123/71 98 Room Air 08/08/17 01:43 Room Air 08/08/17 01:43 Room Air 08/08/17 00:00 96.8 72 18 120/77 100 Room Air 08/08/17 00:00 77 08/07/17 20:00 70 08/07/17 20:00 99.3 76 20 109/67 99 Room Air 08/07/17 19:36 75 16 Room Air 08/07/17 19:31 73 16 Room Air 21 08/07/17 19:30 73 14 98 Room Air 08/07/17 16:00 70 08/07/17 15:47 97.9 70 18 110/65 97 Room Air 08/07/17 13:39 72 16 Room Air 08/07/17 13:30 73 16 98 Room Air 08/07/17 12:00 79 08/07/17 11:41 97.7 65 18 103/69 99 Room Air 08/07/17 09:40 121/71 08/07/17 08:15 97.5 70 18 121/71 100 Room Air 08/07/17 08:00 70 Height (Feet): 5 Height (Inches): 8.00 Weight (Pounds): 164 General Appearance: WD/WN, alert Neck: supple Cardiovascular: regular rhythm Respiratory/Chest: chest wall non-tender, lungs clear, normal breath sounds Abdomen: normal bowel sounds, non tender, soft, no organomegaly Edema: no edema noted Arm (L), no edema noted Arm (R), no edema noted Leg (L), no edema noted Leg (R), no edema noted Pedal (L), no edema noted Pedal (R), no edema noted Generalized PAULINE MUNIZ Aug 08, 2017 07:59
[2017-08-08 08:33] VITALS: BP 119/76
[2017-08-08] MEDS: Heparin 5000 units/ml inj SUBQ SCH (09:00)
[2017-08-08] MEDS: Aspirin Baby 81mg ORAL SCH (09:00)
[2017-08-08 10:26] LABS: BASOPHILS % (AUTO) 1.6 % (0.0-2.0); EOSINOPHILS % (AUTO) 0.7 % (0.0-3.0); LYMPHOCYTES % (AUTO) 28.1 % (20.0-45.0); MEAN CORPUSCULAR HGB CONC 31.5 G/DL (32.0-36.0); MEAN CORPUSCULAR VOLUME 98 FL (80-99); MONOCYTES % (AUTO) 10.7 % (1.0-10.0); NEUTROPHILS % (AUTO) 58.9 % (45.0-75.0); PLATELET COUNT 173 K/UL (150-450); RED BLOOD COUNT 3.77 M/UL (4.70-6.10); RED CELL DISTRIBUTION WIDTH 15.9 % (11.6-14.8); WHITE BLOOD COUNT 6.5 K/UL (4.8-10.8)
[2017-08-08 10:51] LABS: ALANINE AMINOTRANSFERASE 21 U/L (12-78); ANION GAP 6 mmol/L (5-15); ASPARTATE AMINO TRANSFERASE 23 U/L (15-37); CARBON DIOXIDE 30 MMOL/L (21-32); CHLORIDE 106 MMOL/L (98-107); MAGNESIUM 1.8 MG/DL (1.8-2.4); POTASSIUM 3.9 MMOL/L (3.5-5.1); SODIUM 142 MMOL/L (136-145); TOTAL PROTEIN 5.9 G/DL (6.4-8.2)
[2017-08-08 12:10] VITALS: BP 107/70
[2017-08-08 16:42] VITALS: BP 105/60
--- NOTE | 2017-08-08 19:14 | Cardiac Electrophysiology PN ---
Assessment/Plan Status: stable, progressing Status Narrative Mr. Brewster has dilated cm, CHF and is s/p ICD lead and generator replacement. He has a dislodged ICD lead. He was adm following inappropriate shocks and in chf He has improved clinically w/ regard to edema and dyspnea w iv lasix over past 2d. Assessment/Plan The ICD has been turned off, including pacing (to avoid R on T pacing/ He is not pacer-dependent) Lead revision is scheduled for tomorrow. d/w pt, who understands and agrees to proceed. d/w RN Subjective ROS Limited/Unobtainable: No Subjective Mr. Brewster has no dyspnea or pain. Reports improvement in edema Objective Last 24 Hour Vital Signs Date Time Temp Pulse Resp B/P (MAP) Pulse Ox O2 Delivery O2 Flow Rate FiO2 08/08/17 16:42 97.9 92 20 105/60 98 Room Air 08/08/17 12:51 80 16 Room Air 08/08/17 12:50 77 18 98 Room Air 08/08/17 12:10 97.9 73 18 107/70 99 Room Air 08/08/17 10:36 119/76 08/08/17 08:33 97.7 73 18 119/76 99 Room Air 08/08/17 08:25 82 16 Room Air 08/08/17 08:21 81 18 96 Room Air 08/08/17 08:21 81 18 Room Air 21 08/08/17 04:00 76 08/08/17 04:00 97.7 83 18 123/71 98 Room Air 08/08/17 01:43 Room Air 08/08/17 01:43 Room Air 08/08/17 00:00 96.8 72 18 120/77 100 Room Air 08/08/17 00:00 77 08/07/17 20:00 70 08/07/17 20:00 99.3 76 20 109/67 99 Room Air 08/07/17 19:36 75 16 Room Air 08/07/17 19:31 73 16 Room Air 21 08/07/17 19:30 73 14 98 Room Air General Appearance: WD/WN, no apparent distress, alert Neck: supple, no JVD Rhythm: NSR Cardiovascular: normal rate, regular rhythm, no gallop/murmur Respiratory/Chest: lungs clear Abdomen: non tender, soft Extremities: no swelling Intake and Output 08/08/17 08/09/17 19:00 07:00 Intake Total 720 ml Balance 720 ml Intake Oral 720 ml # Voids 4 # Bowel Movements 1 Laboratory Tests Test 08/08/17 09:40 White Blood Count 6.5 K/UL (4.8-10.8) Red Blood Count 3.77 M/UL (4.70-6.10) L Hemoglobin 11.7 G/DL (14.2-18.0) L Hematocrit 37.1 % (42.0-52.0) L Mean Corpuscular Volume 98 FL (80-99) Mean Corpuscular Hemoglobin 31.0 PG (27.0-31.0) Mean Corpuscular Hemoglobin Concent 31.5 G/DL (32.0-36.0) L Red Cell Distribution Width 15.9 % (11.6-14.8) H Platelet Count 173 K/UL (150-450) Mean Platelet Volume 6.0 FL (6.5-10.1) L Neutrophils (%) (Auto) 58.9 % (45.0-75.0) Lymphocytes (%) (Auto) 28.1 % (20.0-45.0) Monocytes (%) (Auto) 10.7 % (1.0-10.0) H Eosinophils (%) (Auto) 0.7 % (0.0-3.0) Basophils (%) (Auto) 1.6 % (0.0-2.0) Sodium Level 142 MMOL/L (136-145) Potassium Level 3.9 MMOL/L (3.5-5.1) Chloride Level 106 MMOL/L (98-107) Carbon Dioxide Level 30 MMOL/L (21-32) Anion Gap 6 mmol/L (5-15) Blood Urea Nitrogen 35 mg/dL (7-18) H Creatinine 2.0 MG/DL (0.55-1.30) H Estimat Glomerular Filtration Rate mL/min (>60) Glucose Level 119 MG/DL (74-106) H Calcium Level 9.0 MG/DL (8.5-10.1) Magnesium Level 1.8 MG/DL (1.8-2.4) Total Bilirubin 0.4 MG/DL (0.2-1.0) Aspartate Amino Transf (AST/SGOT) 23 U/L (15-37) Alanine Aminotransferase (ALT/SGPT) 21 U/L (12-78) Alkaline Phosphatase 57 U/L (46-116) Pro-B-Type Natriuretic Peptide 88954 pg/mL (0-125) H Total Protein 5.9 G/DL (6.4-8.2) L Albumin 2.9 G/DL (3.4-5.0) L Globulin 3.0 g/dL Albumin/Globulin Ratio 1.0 (1.0-2.7) DANIELLE HENRY Aug 08, 2017 19:14
--- NOTE | 2017-08-08 19:17 | Pre-Procedure Note/Attestation ---
Pre-Procedure Note/Attestation Complete Prior to Procedure Planned Procedure: left Procedure Narrative: icd lead dislodgment - revision Indications for Procedure Pre-Operative Diagnosis: icd lead dislodgment Attestation I attest that I discussed the nature of the procedure; its benefits; risks and complications; and alternatives (and the risks and benefits of such alternatives ), prior to the procedure, with the patient (or the patient's legal client services representative). I attest that, if there was a reasonable possibility of needing a blood transfusion, the patient (or the patient's legal client services representative) was given the [facility] standardized written summary, pursuant to the Atif Vick Blood Safety Act ([place] Health and Safety Code # 1645, as amended). I attest that I re-evaluated the patient just prior to the surgery and that there has been no change in the patient's H&P, except as documented below: none DANIELLE HENRY Aug 08, 2017 19:17
[2017-08-08 20:00] VITALS: BP 118/74
[2017-08-08] MEDS: Tamsulosin 0.4mg cap ORAL SCH (20:35)
[2017-08-08] MEDS ORDERED: Heparin 5000 units/ml inj SUBQ SCH (21:00)
[2017-08-08] MEDS ORDERED: KCl 10% 40mEq/30ml liquid ORAL ONE (22:00)
--- NOTE | 2017-08-08 22:45 | Progress Note ---
DATE: 08/08/2017 CARDIOLOGY PROGRESS NOTE SUBJECTIVE: The patient has not had any shocks from his device. It was turned off two days ago. He has not had any loss of consciousness. Monitored rhythm sinus with ventricular ectopics. The patient has less shortness of breath and diminished leg swelling. OBJECTIVE: VITAL SIGNS: Room air oxygen saturation are 95% to 98%, blood pressure 105/60, pulse 92, respiratory rate 20, and afebrile. NECK: Supple. Jugular venous pressure mildly elevated. LUNGS: Clear. CARDIAC: Regular rhythm and rate. Normal S1, S2. A 1/6 systolic apical murmur. ABDOMEN: Soft. EXTREMITIES: With trace dependent edema. LABORATORY DATA: White count 6.5, hemoglobin 11.7. Pro-natriuretic peptide is decreased to 10,000. BUN 35, creatinine 2. IMPRESSION: 1. Cardiac defibrillator with lead malfunction. 2. Paroxysmal atrial fibrillation. 3. Nonsustained ventricular tachycardia. 4. Acute on chronic diastolic and systolic congestive heart failure. 5. Moderate protein-calorie malnutrition. 6. Hypertensive heart disease. 7. Acute on chronic kidney disease. PLAN: 1. Additional diuresis. 2. Protein supplements. 3. Cardiac monitoring. 4. Titrate anti-failure regimen, although limited by blood pressure range at this time. 5. Await lead revision tomorrow with further recommendation and titration of therapy to follow. Andrew Long M.D. DR: NORM JOB#: [id number] CC:
[2017-08-09] VITALS (11 sets, daily range): BP systolic 101–138; BP diastolic 63–94
[2017-08-09] MEDS: Albuterol/Ipratropium 3ml neb HHN SCH ×4 (01:00→19:00)
[2017-08-09 05:37] LABS: BASOPHILS % (AUTO) 1.3 % (0.0-2.0); EOSINOPHILS % (AUTO) 0.7 % (0.0-3.0); LYMPHOCYTES % (AUTO) 30.8 % (20.0-45.0); MEAN CORPUSCULAR HEMOGLOBIN 31.5 PG (27.0-31.0); MEAN CORPUSCULAR HGB CONC 32.4 G/DL (32.0-36.0); MEAN CORPUSCULAR VOLUME 97 FL (80-99); MEAN PLATELET VOLUME 5.7 FL (6.5-10.1); MONOCYTES % (AUTO) 8.8 % (1.0-10.0); NEUTROPHILS % (AUTO) 58.4 % (45.0-75.0); PLATELET COUNT 161 K/UL (150-450); RED BLOOD COUNT 3.67 M/UL (4.70-6.10); RED CELL DISTRIBUTION WIDTH 15.8 % (11.6-14.8); WHITE BLOOD COUNT 5.7 K/UL (4.8-10.8)
[2017-08-09 05:43] LABS: MAGNESIUM 1.6 MG/DL (1.8-2.4); POTASSIUM 4.5 MMOL/L (3.5-5.1)
[2017-08-09 05:45] LABS: INR 1.1 (0.9-1.1)
--- NOTE | 2017-08-09 08:29 | General Progress Note ---
Assessment/Plan Problem List: (1) AICD malfunction ICD Codes: T82.118A - Breakdown (mechanical) of other cardiac electronic device , initial encounter SNOMED: [id number] Status: stable Assessment/Plan tele await pacer lead change/revision later today replace mg Subjective ROS Limited/Unobtainable: No Constitutional: Reports: malaise, weakness HEENT: Reports: no symptoms Cardiovascular: Reports: no symptoms Respiratory: Reports: no symptoms Gastrointestinal/Abdominal: Reports: no symptoms Genitourinary: Reports: no symptoms Neurologic/Psychiatric: Reports: no symptoms Endocrine: Reports: no symptoms Hematologic/Lymphatic: Reports: no symptoms Allergies: Coded Allergies: No Known Allergies (Verified Allergy, Unknown, 01/15/11) All Systems: reviewed and negative except above Subjective no complaints. no dizziness or chest pain no palpitations. cards and ep noted. . npo for pacer revision low mg Objective Last 24 Hour Vital Signs Date Time Temp Pulse Resp B/P (MAP) Pulse Ox O2 Delivery O2 Flow Rate FiO2 08/09/17 04:00 98.3 64 18 108/69 98 Room Air 08/09/17 04:00 64 08/09/17 01:36 Room Air 08/09/17 01:35 67 16 97 Room Air 21 08/09/17 00:00 98.2 66 18 109/73 97 Room Air 08/09/17 00:00 69 08/08/17 20:00 99 08/08/17 20:00 98.2 98 18 118/74 98 Room Air 08/08/17 19:59 74 18 98 Room Air 08/08/17 19:46 71 18 95 Room Air 08/08/17 16:42 97.9 92 20 105/60 98 Room Air 08/08/17 16:00 73 08/08/17 12:51 80 16 Room Air 08/08/17 12:50 77 18 98 Room Air 08/08/17 12:10 97.9 73 18 107/70 99 Room Air 08/08/17 12:00 66 08/08/17 10:36 119/76 08/08/17 08:33 97.7 73 18 119/76 99 Room Air Laboratory Tests 08/08/17 09:40: White Blood Count 6.5, Red Blood Count 3.77L, Hemoglobin 11.7L, Hematocrit 37.1L , Mean Corpuscular Volume 98, Mean Corpuscular Hemoglobin 31.0, Mean Corpuscular Hemoglobin Concent 31.5L, Red Cell Distribution Width 15.9H, Platelet Count 173, Mean Platelet Volume 6.0L, Neutrophils (%) (Auto) 58.9, Lymphocytes (%) (Auto) 28.1, Monocytes (%) (Auto) 10.7H, Eosinophils (%) (Auto) 0.7, Basophils (%) (Auto) 1.6, Sodium Level 142, Potassium Level 3.9, Chloride Level 106, Carbon Dioxide Level 30, Anion Gap 6, Blood Urea Nitrogen 35H, Creatinine 2.0H, Estimat Glomerular Filtration Rate , Glucose Level 119H, Calcium Level 9.0, Magnesium Level 1.8, Total Bilirubin 0.4, Aspartate Amino Transf (AST/SGOT) 23, Alanine Aminotransferase (ALT/SGPT) 21, Alkaline Phosphatase 57, Pro-B-Type Natriuretic Peptide 29681M, Total Protein 5.9L, Albumin 2.9L, Globulin 3.0, Albumin/Globulin Ratio 1.0 08/09/17 05:05: White Blood Count 5.7, Red Blood Count 3.67L, Hemoglobin 11.6L, Hematocrit 35.6L , Mean Corpuscular Volume 97, Mean Corpuscular Hemoglobin 31.5H, Mean Corpuscular Hemoglobin Concent 32.4, Red Cell Distribution Width 15.8H, Platelet Count 161, Mean Platelet Volume 5.7L, Neutrophils (%) (Auto) 58.4, Lymphocytes (%) (Auto) 30.8, Monocytes (%) (Auto) 8.8, Eosinophils (%) (Auto) 0.7, Basophils (%) (Auto) 1.3, Potassium Level 4.5, Magnesium Level 1.6L, Prothrombin Time 12.0H, Prothromb Time International Ratio 1.1, Activated Partial Thromboplast Time 26 Height (Feet): 5 Height (Inches): 6.00 Weight (Pounds): 164 Objective General Appearance: WD/WN, alert Neck: supple Cardiovascular: regular rhythm Respiratory/Chest: chest wall non-tender, lungs clear, normal breath sounds Abdomen: normal bowel sounds, non tender, soft, no organomegaly Edema: no edema noted Arm (L), no edema noted Arm (R), no edema noted Leg (L), no edema noted Leg (R), no edema noted Pedal (L), no edema noted Pedal (R), no edema noted Generalized PAULINE MUNIZ Aug 09, 2017 08:29
[2017-08-09] MEDS: Aspirin Baby 81mg ORAL SCH (09:00)
[2017-08-09] MEDS ORDERED: Bupivacaine 0.25% Inj 30ml INJ ONE ×2 (13:49→18:42)
[2017-08-09] MEDS ORDERED: Iothalamate Meglumine 60% 30ML INJ ONE (13:49)
[2017-08-09] MEDS ORDERED: Lidocaine 1% Plain 30 ml INJ ONE (13:49)
[2017-08-09] MEDS ORDERED: Bacitracin 50000 Units Vial ONE (13:49)
--- NOTE | 2017-08-09 14:05 | Anethesia Preoperative Eval ---
Anesthesia Pre-op PMH/ROS General Date of Evaluation: Aug 09, 2017 Time of Evaluation: 14:02 Anesthesiologist: Dulce Maria ASA Score: ASA 3 Mallampati Score Class I : Soft palate, uvula, fauces, pillars visible Class II: Soft palate, uvula, fauces visible Class III: Soft palate, base of uvula visible Class IV: Only hard plate visible Mallampati Classification: Class II Surgeon: Geovani Diagnosis: ICD malfunction Surgical Procedure: ICD lead revision Anesthesia History: none Social History: smoking - h/o Family History: no anesthesia problems Allergies: Coded Allergies: No Known Allergies (Verified Allergy, Unknown, 01/15/11) Past Medical History Cardiovascular: Reports: HTN, CAD, other - cardiomyopathy, CHF, Denies: RI, valve dz, arrhythmia Pulmonary: Denies: asthma, COPD, JUAN, other Gastrointestinal/Genitourinary: Reports: GERD, Denies: CRI, ESRD, other Neurologic/Psychiatric: Denies: dementia, CVA, depression/anxiety, TIA, other Endocrine: Denies: DM, hypothyroidism, steroids, other HEENT: Denies: cataract (L), cataract (R), glaucoma, [place] (L), [place] (R), other Hematology/Immune: Reports: anemia - mild, Denies: DVT, bleeding disorder, other Musculoskeletal/Integumentary: Denies: OA, RA, DJD, DDD, edema, other Other: other PMH Narrative: as above PSxH Narrative: see H&P Anesthesia Pre-op Phys. Exam Physician Exam Last Vital Signs Date Time Temp Pulse Resp B/P (MAP) Pulse Ox O2 Delivery O2 Flow Rate FiO2 08/09/17 12:00 97.9 71 16 119/69 95 Room Air 08/09/17 10:13 21 Constitutional: NAD Neurologic: CN 2-12 intact Cardiovascular: RRR, no M/R/G Respiratory: CTA Gastrointestinal: S/NT/ND Airway Exam Mallampati Score: Class II MO: limited Neck: stiff ROM: limited Teeth: missing Dentures: no upper, no lower Anesthesia Pre-op A/P Labs Hematology Test 08/09/17 05:05 White Blood Count 5.7 K/UL (4.8-10.8) Red Blood Count 3.67 M/UL (4.70-6.10) L Hemoglobin 11.6 G/DL (14.2-18.0) L Hematocrit 35.6 % (42.0-52.0) L Mean Corpuscular Volume 97 FL (80-99) Mean Corpuscular Hemoglobin 31.5 PG (27.0-31.0) H Mean Corpuscular Hemoglobin Concent 32.4 G/DL (32.0-36.0) Red Cell Distribution Width 15.8 % (11.6-14.8) H Platelet Count 161 K/UL (150-450) Mean Platelet Volume 5.7 FL (6.5-10.1) L Neutrophils (%) (Auto) 58.4 % (45.0-75.0) Lymphocytes (%) (Auto) 30.8 % (20.0-45.0) Monocytes (%) (Auto) 8.8 % (1.0-10.0) Eosinophils (%) (Auto) 0.7 % (0.0-3.0) Basophils (%) (Auto) 1.3 % (0.0-2.0) Coagulation Test 08/09/17 05:05 Prothrombin Time 12.0 SEC (9.30-11.50) H Prothromb Time International Ratio 1.1 (0.9-1.1) Activated Partial Thromboplast Time 26 SEC (23-33) Chemistry Test 08/09/17 05:05 Potassium Level 4.5 MMOL/L (3.5-5.1) Magnesium Level 1.6 MG/DL (1.8-2.4) L Risk Assessment & Plan Assessment: ASA 3 Plan: MAC Status Change Before Surgery: No Pre-Antibiotics Drug: LUPE Grace M.D. Aug 09, 2017 14:05
[2017-08-09] MEDS ORDERED: ceFAZolin 2gm/50ml Premix 50 ML IV ONE (14:30)
[2017-08-09] MEDS ORDERED: ceFAZolin 1gm/50ml Premix 50 ML IV ONE ×2 (15:58→20:30)
[2017-08-09] MEDS ORDERED: NS Irrig 1000ml ONE (17:00)
[2017-08-09] MEDS ORDERED: Sterile Water Irrig 1000ml IRRIG ONE (17:00)
[2017-08-09] MEDS ORDERED: Midazolam 2mg/2ml Inj ONE (17:00)
[2017-08-09] MEDS ORDERED: fentaNYL 100 mcg/2 mL IV ONE (17:00)
[2017-08-09] MEDS ORDERED: LR 1000ml ONE (17:00)
[2017-08-09] MEDS ORDERED: Propofol 200mg/20ml IV ONE (18:06)
[2017-08-09] MEDS ORDERED: Hydromorphone 0.5mg/0.5ml inj IVP PRN (20:30)
[2017-08-09] MEDS ORDERED: DiphenhydrAMINE 50mg/ml Inj IVP PRN (20:30)
[2017-08-09] MEDS ORDERED: Midazolam 2mg/2ml Inj IVP PRN (20:30)
[2017-08-09] MEDS ORDERED: LR 1000ml 1,000 ML IVLG SCH (20:30)
--- NOTE | 2017-08-09 20:33 | Immediate Post-Op Evaluation ---
Immediate Post-Op Evalulation Immediate Post-Op Evalulation Procedure: Revision of ICD lead and defibrilator replacement Date of Evaluation: Aug 09, 2017 Time of Evaluation: 20:32 IV Fluids: 700 Blood Products: none Estimated Blood Loss: 50 Urinary Output: none Blood Pressure Systolic: 134 Blood Pressure Diastolic: 87 Pulse Rate: 82 Respiratory Rate: 20 O2 Sat by Pulse Oximetry: 99 Temperature (Fahrenheit): 97.6 Pain Score (1-10): 2 Nausea: No Vomiting: No Complications none Patient Status: reacts, patent, none Hydration Status: adequate LUPE ROMERO M.D. Aug 09, 2017 20:33
--- NOTE | 2017-08-09 20:40 | Operative Note - PDOC ---
Operative Note Operative Note Date of Operation/Procedure: Aug 09, 2017 Chief Complaint: ICD lead dislodgement Pre-op Diagnosis: icd lead dislodgment Procedure: ICD lead revision, sc venogram removal of L subclavian ICD lead ( non functional lead) Capping of atrial lead on L new defib placement via R cephalic v Post-op Diagnosis: same as pre-op Anesthesia: local, MAC Specimen: none Complications: none Condition: stable Estimated Blood Loss: minimal Drains: none Implant(s) used?: Yes Indications for Procedure ICD lead dislodgement Occluded L subclavian vein Description of Procedure #[id number] dictation # DANIELLE HENRY Aug 09, 2017 20:40
[2017-08-09] MEDS ORDERED: Tylenol #3 tab (300mg/30mg) ORAL PRN (22:00)
[2017-08-09] MEDS: Tamsulosin 0.4mg cap ORAL SCH (22:02)
[2017-08-09] MEDS: ceFAZolin sod 1 GM in D5W 55 ML IVPB SCH (22:02)
--- NOTE | 2017-08-10 00:15 | Operative Note - Dictated ---
DATE OF PROCEDURE: 08/09/2017 PREOPERATIVE DIAGNOSIS: ICD LEAD DISLODGEMENT. POSTOPERATIVE DIAGNOSIS: ICD LEAD DISLODGEMENT. PROCEDURE PERFORMED: ICD LEAD REMOVAL AND NEW LEAD PLACEMENT. SURGEON: Mariama Olivo M.D. MOTHER HELPER: None. ANESTHESIOLOGIST: Ritchie العراقي M.D. ANESTHESIA: Local and intravenous sedation. CLINICAL HISTORY: The patient is an 82-year-old man with nonischemic cardiomyopathy, status post placement of an ICD originally in 2010 with generator replacement and lead revision for lead fracture in March 2017. His newly placed defibrillator lead had dislodged to the atrium and he received inappropriate shocks for atrial tachyarrhythmia. The ICD is a [employer] Fortify Assura DR, serial number [id number]. The capped atrial lead is a [employer] 98942, serial number [id number]. The new lead placed ventricular lead is a [employer], serial number [id number]. Pacing and sensing, sensing is 2.4 millivolts, pacing threshold less than 0.25 volts at 0.5 milliseconds. Lead impedance 460 ohms, high-voltage 26 ohms. DESCRIPTION OF PROCEDURE: The patient was brought to the operating room, received sedation as per the anesthesiologist, Dr. العراقي. The left chest was sterilely prepped and draped in the usual manner. The skin and underlying soft tissues over the previous incision were infiltrated with 1% Xylocaine local anesthetic. An incision was made and this was carried down to the submuscular capsule enclosing the generator. The generator was explanted. The ventricular lead was detached and dissected down to the suture sleeve. The stylet was placed and it was attempted to reposition the defibrillating lead back into the ventricle, however, the screw could not be readvanced once it had been retracted. Therefore, this lead was removed. A contrast venogram was performed of the left subclavian and it was found to be occluded. Therefore, the right chest was sterilely prepped and draped. The skin and underlying soft tissues over the right deltopectoral groove were infiltrated with 1% Xylocaine local anesthetic. A cephalic vein cutdown was performed and the right cephalic vein isolated. The proximal loop and distal tie of silk sutures were placed. The vein was incised and a guidewire advanced under fluoroscopy into the low right atrium. A 9-Amharic introducer was placed over the guidewire. After the guidewire and dilator were removed, the ventricle lead was positioned in the right ventricular apex. Initially, however, this resulted in poor sensing and pacing. The lead was then repositioned several times until a more slightly superior location was obtained, which had good sensing of 5 to 6 millivolts and pacing threshold under a volt. The screw was advanced under fluoroscopy. The introducer was slid under fluoroscopy. A submuscular pocket was created using blunt and Bovie dissection. The pocket was flushed with an antibiotic solution. The lead was attached to the generator and the set screw was tightened and checked. The atrial lead was capped as it was elected not to tunnel the existing atrial lead, which had good sensing of 5 to 7 millivolts and pacing threshold under a volt. The screw was advanced under fluoroscopy. The lead was attached to the ICD generator. The atrial port was plugged as it was elected not to tunnel the atrial lead across from the left as the patient had minimal atrial pacing detected on stored diagnostics from his device. After the submuscular pocket was created, flushed with antibiotic solution, the ICD lead and generator was placed into the submuscular pocket with the excess lead coiled around the generator. The incision was then closed with #0 silk for the muscle layer, 2-0 and 4-0 Monocryl for the more superficial layers. With regard to the left-sided leads, the newly placed defibrillator lead, which was nonfunctional, was removed. The remained one abandoned ICD lead that had been placed through the left subclavian and a capped atrial lead from the left subclavian. This left-sided pocket was closed with 2-0 and 4-0 Monocryl absorbable suture. Sterile dressings were applied to both incision sites. The patient was transferred to the recovery room in stable condition. Mariama Olivo M.D. DR: HEATHER JOB#: [id number] CC: ROBYN
[2017-08-10 00:25] VITALS: BP 129/76
[2017-08-10] MEDS: Albuterol/Ipratropium 3ml neb HHN SCH ×4 (02:17→19:40)
[2017-08-10 04:00] VITALS: BP 113/62
--- NOTE | 2017-08-10 05:45 | Progress Note ---
DATE: 08/09/2017 CARDIOLOGY PROGRESS NOTE SUBJECTIVE: The patient is status post lead revision. Difficulty with transit repositioning of lead, it had to be capped off and a new lead placed. The patient has no shortness of breath or chest pain. OBJECTIVE: VITAL SIGNS: Blood pressure 129/76, pulse 71, respirations 20, afebrile, and room air oxygen 98%. CHEST: Left chest wall with dressing in place. LUNGS: With clear breath sounds. CARDIAC: Regular rhythm and rate. Normal S1, S2. A 1/6 apical murmur. ABDOMEN: Soft. EXTREMITIES: Trace edema. LABORATORY DATA: Magnesium 1.6. IMPRESSION: 1. Cardiac defibrillator with lead dehiscence and defibrillator malfunction, status post revision. 2. Hypomagnesemia. 3. 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 4. Paroxysmal atrial fibrillation. 5. Nonsustained ventricular tachycardia. 6. Anemia. 7. Moderate protein-calorie malnutrition. PLAN: 1. Intravenous magnesium. 2. Cardiac monitoring. 3. Titrate anti-failure regimen. 4. Mobilize. 5. Postoperative wound care. 6. Discharge planning to follow. Andrew Long M.D. DR: NORM JOB#: [id number] CC:
[2017-08-10] MEDS: ceFAZolin sod 1 GM in D5W 55 ML IVPB SCH ×3 (05:56→21:41)
[2017-08-10 07:12] LABS: BASOPHILS % (AUTO) 0.6 % (0.0-2.0); EOSINOPHILS % (AUTO) 0.1 % (0.0-3.0); LYMPHOCYTES % (AUTO) 9.9 % (20.0-45.0); MEAN CORPUSCULAR HGB CONC 30.9 G/DL (32.0-36.0); MEAN CORPUSCULAR VOLUME 97 FL (80-99); MEAN PLATELET VOLUME 5.9 FL (6.5-10.1); MONOCYTES % (AUTO) 9.3 % (1.0-10.0); NEUTROPHILS % (AUTO) 80.1 % (45.0-75.0); PLATELET COUNT 161 K/UL (150-450); RED BLOOD COUNT 3.73 M/UL (4.70-6.10); RED CELL DISTRIBUTION WIDTH 15.7 % (11.6-14.8); WHITE BLOOD COUNT 8.5 K/UL (4.8-10.8)
[2017-08-10 07:39] LABS: ALANINE AMINOTRANSFERASE 19 U/L (12-78); ALBUMIN/GLOBULIN RATIO 0.8 (1.0-2.7); ANION GAP 7 mmol/L (5-15); ASPARTATE AMINO TRANSFERASE 28 U/L (15-37); CALCIUM 9.3 MG/DL (8.5-10.1); CARBON DIOXIDE 28 MMOL/L (21-32); CHLORIDE 103 MMOL/L (98-107); CREATININE 1.7 MG/DL (0.55-1.30); POTASSIUM 4.6 MMOL/L (3.5-5.1); SODIUM 138 MMOL/L (136-145); TOTAL PROTEIN 5.9 G/DL (6.4-8.2)
--- NOTE | 2017-08-10 08:25 | Cardiac Electrophysiology PN ---
Assessment/Plan Problem List: (1) AICD malfunction Status: stable, progressing Status Narrative Mr. Brewster has dilated cm, CHF and is s/p ICD lead and generator replacement in . The initial device was implanted in 2010 He underwent lead revision for dislodged lead yesterday, 08/09. The dislodged lead could not be repositioned due to inability to secure lead (screw at lead tip could not be advanced). The L subclavian vein was occluded, so a new defib lead was placed on R via R cephalic vein. He is stable postop. Assessment/Plan continue analgesics prn complete 4 doses of iv ancef (pre-/ post op) Dc plan per Dr. Long Will see on Tuesday for wound check. Keep incisions clean/dry w/ dressings in place x 1wk Subjective ROS Limited/Unobtainable: No Subjective Mr. Brewster has mild incisional pain. No c/o dyspnea Objective Last 24 Hour Vital Signs Date Time Temp Pulse Resp B/P (MAP) Pulse Ox O2 Delivery O2 Flow Rate FiO2 08/10/17 07:05 77 16 100 Nasal Cannula 2.0 28 08/10/17 07:00 80 16 97 Nasal Cannula 2.0 28 08/10/17 04:00 79 08/10/17 04:00 96.8 77 20 113/62 97 Room Air 2.0 21 08/10/17 01:45 78 16 100 Room Air 21 08/10/17 01:30 75 16 98 Room Air 21 08/10/17 00:25 96.8 88 20 129/76 95 Room Air 08/10/17 00:00 76 08/09/17 21:05 98.0 70 18 132/76 100 Nasal Cannula 2.0 08/09/17 21:00 96.8 71 20 129/76 98 Room Air 08/09/17 20:54 72 18 128/81 100 Nasal Cannula 2.0 08/09/17 20:44 66 18 130/81 100 Nasal Cannula 2.0 08/09/17 20:35 70 18 136/84 100 Simple Mask 8.0 08/09/17 20:33 82 20 99 08/09/17 20:30 73 18 135/82 100 Simple Mask 8.0 08/09/17 20:25 97.1 74 18 138/94 100 Simple Mask 8.0 08/09/17 19:45 Room Air 10/24/17 19:43 Room Air 08/09/17 14:24 66 18 100 Room Air 21 08/09/17 14:13 67 16 99 Room Air 21 08/09/17 12:00 97.9 71 16 119/69 95 Room Air 08/09/17 11:34 67 08/09/17 10:13 82 18 96 Room Air 21 08/09/17 09:59 70 16 97 Room Air 21 08/09/17 09:00 101/63 General Appearance: WD/WN, no apparent distress, alert EENT: PERRL/EOMI Neck: supple, no JVD Rhythm: NSR Cardiovascular: regular rhythm, no gallop/murmur Respiratory/Chest: lungs clear, other - L and R infraclav incisions covered w/ dry dressings Abdomen: non tender, soft Extremities: no swelling Laboratory Tests Test 08/10/17 05:20 White Blood Count 8.5 K/UL (4.8-10.8) Red Blood Count 3.73 M/UL (4.70-6.10) L Hemoglobin 11.2 G/DL (14.2-18.0) L Hematocrit 36.3 % (42.0-52.0) L Mean Corpuscular Volume 97 FL (80-99) Mean Corpuscular Hemoglobin 30.0 PG (27.0-31.0) Mean Corpuscular Hemoglobin Concent 30.9 G/DL (32.0-36.0) L Red Cell Distribution Width 15.7 % (11.6-14.8) H Platelet Count 161 K/UL (150-450) Mean Platelet Volume 5.9 FL (6.5-10.1) L Neutrophils (%) (Auto) 80.1 % (45.0-75.0) H Lymphocytes (%) (Auto) 9.9 % (20.0-45.0) L Monocytes (%) (Auto) 9.3 % (1.0-10.0) Eosinophils (%) (Auto) 0.1 % (0.0-3.0) Basophils (%) (Auto) 0.6 % (0.0-2.0) Sodium Level 138 MMOL/L (136-145) Potassium Level 4.6 MMOL/L (3.5-5.1) Chloride Level 103 MMOL/L (98-107) Carbon Dioxide Level 28 MMOL/L (21-32) Anion Gap 7 mmol/L (5-15) Blood Urea Nitrogen 27 mg/dL (7-18) H Creatinine 1.7 MG/DL (0.55-1.30) H Estimat Glomerular Filtration Rate mL/min (>60) Glucose Level 144 MG/DL (74-106) H Calcium Level 9.3 MG/DL (8.5-10.1) Total Bilirubin 0.4 MG/DL (0.2-1.0) Aspartate Amino Transf (AST/SGOT) 28 U/L (15-37) Alanine Aminotransferase (ALT/SGPT) 19 U/L (12-78) Alkaline Phosphatase 36 U/L (46-116) L Pro-B-Type Natriuretic Peptide 6905 pg/mL (0-125) H Total Protein 5.9 G/DL (6.4-8.2) L Albumin 2.7 G/DL (3.4-5.0) L Globulin 3.2 g/dL Albumin/Globulin Ratio 0.8 (1.0-2.7) DANIELLE SENIOR Aug 10, 2017 08:25
[2017-08-10 08:47] VITALS: BP 109/63
--- NOTE | 2017-08-10 08:50 | 48 Hour Post Anesthesia Eval ---
Post Anesthesia Evaluation Procedure: Revision of ICD lead and defibrilator replacement Date of Evaluation: Aug 10, 2017 Time of Evaluation: 08:49 Blood Pressure Systolic: 116 0: 58 Pulse Rate: 74 Respiratory Rate: 20 Temperature (Fahrenheit): 97.8 O2 Sat by Pulse Oximetry: 98 Airway: patent Nausea: No Vomiting: No Pain Intensity: 2 Hydration Status: adequate Cardiopulmonary Status: stable Mental Status/LOC: patient returned to baseline Follow-up Care/Observations: n/a Post-Anesthesia Complications: none Follow-up care needed: N/A LUPE ROMERO M.D. Aug 10, 2017 08:50
[2017-08-10] MEDS: Aspirin Baby 81mg ORAL SCH (10:15)
[2017-08-10 11:46] VITALS: BP 99/57
--- NOTE | 2017-08-10 11:48 | Diagnostic Imaging Report ---
Indication: Status post pacemaker Technique: One view of the chest Comparison: 08/06/2017 Findings: Interim removal of previously demonstrated left chest AICD powerpack. Orphaned right atrial and right ventricular leads are demonstrated. There is a new right chest AICD, with a single new right ventricular lead. No pneumothorax demonstrated. The heart is enlarged. Bilateral pleural effusions are now present, not evident previously. Interstitial congestion is now present, likewise not evident previously. Impression: Interim removal of previously demonstrated left chest AICD generator and placement of new right chest unifocal AICD. No radiographically evident location Interstitial edema and bilateral pleural effusions, new since prior exam 07/12/16
--- NOTE | 2017-08-10 12:43 | General Progress Note ---
Assessment/Plan Problem List: (1) AICD malfunction ICD Codes: T82.118A - Breakdown (mechanical) of other cardiac electronic device , initial encounter SNOMED: [id number] Status: stable, progressing Assessment/Plan tele post op care/wound care iv abx pt/ot eval dc planning after abx and pt eval completed Subjective ROS Limited/Unobtainable: No Constitutional: Reports: malaise, weakness HEENT: Reports: no symptoms Cardiovascular: Reports: no symptoms Respiratory: Reports: cough Gastrointestinal/Abdominal: Reports: no symptoms Genitourinary: Reports: no symptoms Neurologic/Psychiatric: Reports: no symptoms Endocrine: Reports: no symptoms Hematologic/Lymphatic: Reports: no symptoms Allergies: Coded Allergies: No Known Allergies (Verified Allergy, Unknown, 01/15/11) All Systems: reviewed and negative except above Subjective no complaints. no dizziness or chest pain no palpitations. cards and ep noted. . s/p complicated pacer lead replacement Objective Last 24 Hour Vital Signs Date Time Temp Pulse Resp B/P (MAP) Pulse Ox O2 Delivery O2 Flow Rate FiO2 08/10/17 11:46 97.9 80 19 99/57 98 Nasal Cannula 2.0 08/10/17 10:14 116/58 08/10/17 08:50 74 20 98 08/10/17 08:47 98.2 86 20 109/63 95 Nasal Cannula 2.0 08/10/17 07:05 77 16 100 Nasal Cannula 2.0 28 08/10/17 07:00 80 16 97 Nasal Cannula 2.0 28 08/10/17 04:00 79 08/10/17 04:00 96.8 77 20 113/62 97 Room Air 2.0 08/10/17 01:45 78 16 100 Room Air 21 08/10/17 01:30 75 16 98 Room Air 21 08/10/17 00:25 96.8 88 20 129/76 95 Room Air 08/10/17 00:00 76 08/09/17 21:05 98.0 70 18 132/76 100 Nasal Cannula 2.0 08/09/17 21:00 96.8 71 20 129/76 98 Room Air 08/09/17 20:54 72 18 128/81 100 Nasal Cannula 2.0 08/09/17 20:44 66 18 130/81 100 Nasal Cannula 2.0 08/09/17 20:35 70 18 136/84 100 Simple Mask 8.0 08/09/17 20:33 82 20 99 08/09/17 20:30 73 18 135/82 100 Simple Mask 8.0 08/09/17 20:25 97.1 74 18 138/94 100 Simple Mask 8.0 08/09/17 19:45 Room Air 08/09/17 19:43 Room Air 08/09/17 14:24 66 18 100 Room Air 21 08/09/17 14:13 67 16 99 Room Air 21 Intake and Output 08/10/17 08/11/17 18:59 06:59 Intake Total 120 ml Output Total 300 ml Balance -180 ml Intake Oral 120 ml Output Urine Total 300 ml Laboratory Tests 08/10/17 05:20: White Blood Count 8.5, Red Blood Count 3.73L, Hemoglobin 11.2L, Hematocrit 36.3L , Mean Corpuscular Volume 97, Mean Corpuscular Hemoglobin 30.0, Mean Corpuscular Hemoglobin Concent 30.9L, Red Cell Distribution Width 15.7H, Platelet Count 161, Mean Platelet Volume 5.9L, Neutrophils (%) (Auto) 80.1H, Lymphocytes (%) (Auto) 9.9L, Monocytes (%) (Auto) 9.3, Eosinophils (%) (Auto) 0.1, Basophils (%) (Auto) 0.6, Sodium Level 138, Potassium Level 4.6, Chloride Level 103, Carbon Dioxide Level 28, Anion Gap 7, Blood Urea Nitrogen 27H, Creatinine 1.7H, Estimat Glomerular Filtration Rate , Glucose Level 144H, Calcium Level 9.3, Total Bilirubin 0.4, Aspartate Amino Transf (AST/SGOT) 28, Alanine Aminotransferase (ALT/SGPT) 19, Alkaline Phosphatase 36L, Pro-B-Type Natriuretic Peptide 6905H, Total Protein 5.9L, Albumin 2.7L, Globulin 3.2, Albumin/Globulin Ratio 0.8L Height (Feet): 5 Height (Inches): 6.00 Weight (Pounds): 164 Objective General Appearance: WD/WN, alert Neck: supple Cardiovascular: regular rhythm Respiratory/Chest: chest wall non-tender, lungs clear, normal breath sounds Abdomen: normal bowel sounds, non tender, soft, no organomegaly Edema: no edema noted Arm (L), no edema noted Arm (R), no edema noted Leg (L), no edema noted Leg (R), no edema noted Pedal (L), no edema noted Pedal (R), no edema noted Generalized PAULINE MUNIZ Aug 10, 2017 12:43
--- NOTE | 2017-08-10 14:28 | Cardiology Report ---
APPROVED REPORT EKG Measurement Heart [id number] Sinus rhythm with 1st degree AV block Low voltage QRS Cannot rule out Anterior infarct, age undetermined Marked ST abnormality, possible inferolateral subendocardial injury Abnormal ECG
[2017-08-10 15:59] VITALS: BP 104/55
[2017-08-10 20:00] VITALS: BP 106/67
--- NOTE | 2017-08-10 21:30 | Progress Note ---
DATE: 08/10/2017 CARDIOLOGY PROGRESS NOTE SUBJECTIVE: The patient is status post lead revision with newly placed. He has slight pain over his shoulder. OBJECTIVE: VITAL SIGNS: Blood pressure 116/58, pulse 74, and respiratory rate 20. LUNGS: Clear. CARDIAC: Regular. Normal S1 and S2. Surgical site with dressing and no signs of secondary infection. EXTREMITIES: With trace edema. LABORATORY DATA: White count 8.5 and hemoglobin 11.2. BUN 27 and creatinine 1.7. Pro-natriuretic peptide 6900. IMPRESSION: 1. Status post defibrillator shock due to malfunctioning lead and lead replacement. 2. Hypomagnesemia. 3. Acute on chronic systolic and diastolic congestive heart failure. 4. Cardiomyopathy. PLAN: 1. Transition from IV to oral diuretics. 2. Replace electrolytes as needed. 3. No resumption of amiodarone. 4. Discharge planning. Andrew Long M.D. DR: Xavier JOB#: [id number] CC:
[2017-08-10] MEDS: Tamsulosin 0.4mg cap ORAL SCH (21:40)
[2017-08-11] VITALS: BP 105/63
[2017-08-11] MEDS: Albuterol/Ipratropium 3ml neb HHN SCH (01:00)
[2017-08-11 04:00] VITALS: BP 109/72
[2017-08-11 08:00] VITALS: BP 95/55
[2017-08-11] MEDS ORDERED: Furosemide 40mg tab ORAL SCH (09:00)
[2017-08-11] MEDS: Aspirin Baby 81mg ORAL SCH (09:07)
[2017-08-11] MEDS ORDERED: Tubing IV Secondary IV ONE (10:20)
[2017-08-11] MEDS ORDERED: NS 275ml ONE (10:20)
[2017-08-11] MEDS ORDERED: 1/2 NS 1000ml IV ONE (10:20)
--- NOTE | 2017-08-11 10:53 | Cardiac Electrophysiology PN ---
Assessment/Plan Problem List: (1) AICD malfunction (2) Nonischemic cardiomyopathy Status: doing well, stable Status Narrative Mr. Brewster is stable, s/p lead revision ( ICD lead dislodgment). The old lead could not be repositioned due to malfunction of fixation screw, and L subclavian vein was stenosed. Therefore, a new lead was placed via R subclavian. Lead function is normal (device interrogated on 08/10), w/ normal pacing threshold ( 0.25 v 0.4 ms) , impedance 440, but sensing is 2.5 mv Assessment/Plan continue analgesics prn Completed pre and post op ancef dosing. Agree w/ dc home today. Will recheck ICD lead sensing and incision sites in office next week. Subjective ROS Limited/Unobtainable: No Subjective Mr. Brewster has no c/o pain or dyspnea. Events noted. Objective Last 24 Hour Vital Signs Date Time Temp Pulse Resp B/P (MAP) Pulse Ox O2 Delivery O2 Flow Rate FiO2 08/11/17 09:00 105/63 08/11/17 08:00 95 08/11/17 08:00 98.5 79 18 95/55 94 Room Air 08/11/17 04:00 98.1 79 16 109/72 100 Nasal Cannula 2.0 08/11/17 04:00 95 08/11/17 01:17 Nasal Cannula 2.0 28 08/11/17 01:17 Nasal Cannula 2.0 28 08/11/17 00:00 99.0 79 18 105/63 100 Nasal Cannula 2.0 08/11/17 00:00 77 08/10/17 20:00 82 08/10/17 20:00 98.1 81 16 106/67 100 Nasal Cannula 08/10/17 19:42 92 20 99 Nasal Cannula 2.0 28 08/10/17 19:30 90 20 95 Nasal Cannula 2.0 28 08/10/17 16:00 77 08/10/17 15:59 97.9 81 18 104/55 98 Nasal Cannula 2.0 08/10/17 12:56 88 16 100 Nasal Cannula 2.0 28 08/10/17 12:50 92 18 96 Nasal Cannula 2.0 28 08/10/17 12:00 79 08/10/17 11:46 97.9 80 19 99/57 98 Nasal Cannula 2.0 General Appearance: WD/WN, no apparent distress, alert EENT: PERRL/EOMI Neck: supple, no JVD Rhythm: NSR Cardiovascular: normal rate, regular rhythm, no gallop/murmur Respiratory/Chest: lungs clear, other - Bilateral dressings over incisions R and L infraclav area - no hematomas Abdomen: non tender, soft Extremities: no swelling Labs Test 08/10/17 05:20 White Blood Count 8.5 K/UL (4.8-10.8) Red Blood Count 3.73 M/UL (4.70-6.10) Hemoglobin 11.2 G/DL (14.2-18.0) Hematocrit 36.3 % (42.0-52.0) Mean Corpuscular Volume 97 FL (80-99) Mean Corpuscular Hemoglobin 30.0 PG (27.0-31.0) Mean Corpuscular Hemoglobin Concent 30.9 G/DL (32.0-36.0) Red Cell Distribution Width 15.7 % (11.6-14.8) Platelet Count 161 K/UL (150-450) Mean Platelet Volume 5.9 FL (6.5-10.1) Neutrophils (%) (Auto) 80.1 % (45.0-75.0) Lymphocytes (%) (Auto) 9.9 % (20.0-45.0) Monocytes (%) (Auto) 9.3 % (1.0-10.0) Eosinophils (%) (Auto) 0.1 % (0.0-3.0) Basophils (%) (Auto) 0.6 % (0.0-2.0) Sodium Level 138 MMOL/L (136-145) Potassium Level 4.6 MMOL/L (3.5-5.1) Chloride Level 103 MMOL/L (98-107) Carbon Dioxide Level 28 MMOL/L (21-32) Anion Gap 7 mmol/L (5-15) Blood Urea Nitrogen 27 mg/dL (7-18) Creatinine 1.7 MG/DL (0.55-1.30) Estimat Glomerular Filtration Rate mL/min (>60) Glucose Level 144 MG/DL (74-106) Calcium Level 9.3 MG/DL (8.5-10.1) Total Bilirubin 0.4 MG/DL (0.2-1.0) Aspartate Amino Transf (AST/SGOT) 28 U/L (15-37) Alanine Aminotransferase (ALT/SGPT) 19 U/L (12-78) Alkaline Phosphatase 36 U/L (46-116) Pro-B-Type Natriuretic Peptide 6905 pg/mL (0-125) Total Protein 5.9 G/DL (6.4-8.2) Albumin 2.7 G/DL (3.4-5.0) Globulin 3.2 g/dL Albumin/Globulin Ratio 0.8 (1.0-2.7) DANIELLE HENRY Aug 11, 2017 10:53
[2017-08-11 12:07] VITALS: BP 103/63
--- NOTE | 2017-08-12 03:01 | Discharge Summary ---
DATE OF ADMISSION: 08/06/2017 DATE OF DISCHARGE: 08/11/2017 ADMISSION DIAGNOSES: 1. Dislodged pacemaker lead. 2. Congestive heart failure exacerbation. 3. Hypertension. DISCHARGE DIAGNOSES: 1. Dislodged pacemaker lead. 2. Congestive heart failure exacerbation. 3. Hypertension. HOSPITAL COURSE: The patient is a pleasant male admitted with complaints of a dislodged pacemaker lead. He had generalized weakness and dizziness. He was admitted and placed on a monitor. EP and Cardiology consultations were obtained. The patient underwent replacement of the pacemaker lead without complication. On discharge, he was doing well. He will be discharged home with close outpatient followup. DISCHARGE MEDICATIONS: Please see discharge medication list for discharge medications. DIET: Cardiac diet. ACTIVITY: Ad-lupe. FOLLOWUP: The patient is to follow up in 1 to 2 weeks in the office. Alexis Kaufman M.D. DR: MENG JOB#: [id number] CC:
== END 2017-08-11 16:40 | disposition home health service (06) | DRG 260 ==
LOC: 2E 08-06 00:12 → SDSOVERFLO 08-08 15:21 → 2E 08-08 15:25
DX: T82.120A Displacement of cardiac electrode, initial encounter (principal); I50.43 Acute on chronic combined systolic (congestive) and diastolic (congestive) heart failure; I47.2 Ventricular tachycardia; N17.9 Acute kidney failure, unspecified; E44.0 Moderate protein-calorie malnutrition; I42.0 Dilated cardiomyopathy; E83.42 Hypomagnesemia; J44.9 Chronic obstructive pulmonary disease, unspecified; I48.0 Paroxysmal atrial fibrillation; I13.0 Hypertensive heart and chronic kidney disease with heart failure and stage 1 through stage 4 chronic kidney disease, or unspecified chronic kidney disease; E78.5 Hyperlipidemia, unspecified; N18.2 Chronic kidney disease, stage 2 (mild); Z87.891 Personal history of nicotine dependence; Y83.8 Other surgical procedures as the cause of abnormal reaction of the patient, or of later complication, without mention of misadventure at the time of the procedure; D64.9 Anemia, unspecified
CPT/HCPCS: 36415; 71010; 71020; 80053; 83735; 83880; 84132; 85025; 85610; 85730; 93005; 94003; 94150; 94640; 94664; J2250; J2405; J7620

== ENCOUNTER 2017-10-13 13:37 | Inpatient (IN) | payer MEDICARE, MEDICAID ==
[~2017-10-13] VITALS: Ht 172.7 cm; Wt 65.3 kg
[2017-10-13 18:59] VITALS: BP 120/60
[2017-10-13 20:00] VITALS: BP 106/66
[2017-10-13 22:44] LABS: APPEARANCE,URINE CLEAR; BILIRUBIN, URINE NEGATIVE (NEGATIVE); COLOR,URINE PALE YELLOW; GLUCOSE, URINE (UA) NEGATIVE (NEGATIVE); KETONES,URINE NEGATIVE (NEGATIVE); LEUKOCYTE ESTERASE ,URINE NEGATIVE (NEGATIVE); NITRITE,URINE NEGATIVE (NEGATIVE); PH,URINE 5 (4.5-8.0); PROTEIN,URINE NEGATIVE (NEGATIVE); UROBILINOGEN,URINE NORMAL MG/DL (0.0-1.0)
[2017-10-14] VITALS (7 sets, daily range): BP systolic 94–118; BP diastolic 47–68
[2017-10-14] MEDS: Albuterol/Ipratropium 3ml neb HHN SCH ×4 (02:15→21:12)
[2017-10-14] MEDS ORDERED: Norco 5mg/325mg tab ORAL PRN (02:30)
[2017-10-14] MEDS: cefTRIAXone 1 GM in D5W 55 ML IVPB SCH (03:06)
[2017-10-14 07:32] LABS: BASOPHILS % (AUTO) 0.6 % (0.0-2.0); EOSINOPHILS % (AUTO) 0.2 % (0.0-3.0); HEMATOCRIT 35.7 % (42.0-52.0); HEMOGLOBIN 11.2 G/DL (14.2-18.0); LYMPHOCYTES % (AUTO) 21.9 % (20.0-45.0); MEAN CORPUSCULAR VOLUME 95 FL (80-99); MONOCYTES % (AUTO) 12.4 % (1.0-10.0); NEUTROPHILS % (AUTO) 64.8 % (45.0-75.0); PLATELET COUNT 237 K/UL (150-450); RED BLOOD COUNT 3.75 M/UL (4.70-6.10); RED CELL DISTRIBUTION WIDTH 14.7 % (11.6-14.8); WHITE BLOOD COUNT 8.4 K/UL (4.8-10.8)
[2017-10-14 07:41] LABS: ALANINE AMINOTRANSFERASE 15 U/L (12-78); ALBUMIN 2.5 G/DL (3.4-5.0); ALBUMIN/GLOBULIN RATIO 0.7 (1.0-2.7); ALKALINE PHOSPHATASE 28 U/L (46-116); ANION GAP 9 mmol/L (5-15); ASPARTATE AMINO TRANSFERASE 23 U/L (15-37); BILIRUBIN,TOTAL 0.6 MG/DL (0.2-1.0); BLOOD UREA NITROGEN 22 mg/dL (7-18); CALCIUM 7.6 MG/DL (8.5-10.1); CARBON DIOXIDE 26 MMOL/L (21-32); CHLORIDE 104 MMOL/L (98-107); CREATININE 1.5 MG/DL (0.55-1.30); POTASSIUM 3.6 MMOL/L (3.5-5.1); SODIUM 139 MMOL/L (136-145)
[2017-10-14] MEDS ORDERED: Benazepril 10mg tab ONE (08:57)
[2017-10-14] MEDS: Furosemide 40mg tab ORAL SCH ×2 (09:00→09:16)
[2017-10-14] MEDS: Heparin 5000 units/ml inj SUBQ SCH ×2 (09:13→20:43)
[2017-10-14] MEDS: Aspirin EC 81mg tab ORAL SCH (09:13)
--- NOTE | 2017-10-14 09:16 | Consultation ---
DATE OF CONSULTATION: 10/13/2017 CARDIOLOGY CONSULTATION CONSULTING PHYSICIAN: Andrew Long M.D. REQUESTING PHYSICIAN: Alexis Kaufman M.D. REASON FOR CONSULTATION: Shortness of breath in the setting of cardiomyopathy with cardiac defibrillator. HISTORY OF PRESENT ILLNESS: This is an 82-year-old male. Two months ago, he had his biventricular cardiac defibrillator upgraded because of atrial lead malfunction. Since that time, he has progressively developed shortness of breath. Over the past few days, he has had cough and congestion. Over the past few months, he has lost almost 20 pounds, albeit mostly fluids. He has doubled the dose of his diuretics and has gotten rid "of his leg swelling." Nevertheless, while he initially felt better, most recently his shortness of breath has worsened and he has not been able to ambulate or perform ADLs. PAST MEDICAL HISTORY: Chronic obstructive pulmonary disease, hypertensive heart disease, coronary artery disease, hyperuricemia, degenerative disk disease, chronic systolic and diastolic congestive heart failure, hyperlipidemia, chronic kidney disease, paroxysmal atrial fibrillation, [employer]'s cardiac defibrillator, and paroxysmal ventricular arrhythmias. MEDICATIONS: Prior to admission, reviewed and reconciled. ALLERGIES: None. SOCIAL HISTORY: Prior smoker, but quit over 20 years ago. No alcohol or substance abuse. REVIEW OF SYSTEMS: No fevers or chills. Some productive cough. No wheezing. No history of blood clotting. He has had leg swelling. He has gotten short of breath with minimal activity. He has had a prior small stroke. He does have peripheral artery disease. There is no history of thyroid disease or diabetes mellitus. No change in bowel habits noted. PHYSICAL EXAMINATION: GENERAL: Frail, appears his age, in mild distress. VITAL SIGNS: Blood pressure 106/66, pulse 62, respirations 20, and afebrile. HEENT: Temporal wasting. Pale conjunctivae. Arcus senilis. Oropharynx clear. NECK: Supple. No adenopathy. LUNGS: Coarse breath sounds. Rhonchi. CARDIAC: Regular rhythm and rate. Normal S1, paradoxically split S2. A 1/6 systolic apical murmur. ABDOMEN: Soft. EXTREMITIES: No edema. LABORATORY AND DIAGNOSTIC DATA: Labs are reviewed. Chest x-ray, pending. IMPRESSION: 1. Dyspnea. 2. Possible pneumonia. 3. Acute on chronic systolic and diastolic congestive heart failure. 4. Paroxysmal atrial fibrillation. 5. Nonsustained ventricular tachycardia. 6. Biventricular cardiac defibrillator. PLAN: 1. Panculture. 2. Empiric intravenous antibiotics. 3. Await chest x-ray and results of blood studies. 4. Maintenance dose diuretic for now. 5. Reassess volume status and adjust dosing on a daily basis. 6. DVT and stress ulcer prophylaxes. 7. Titrate and adjust diuretic dose. Andrew Long M.D. DR: NORM JOB#: [id number] CC:
--- NOTE | 2017-10-14 11:17 | Diagnostic Imaging Report ---
Indication: Cough Comparison: 08/09/2017 2 views of the chest obtained. Lungs are hyperexpanded. Moderate cardiomegaly is present. Interstitial prominence likely chronic. Aorta is mildly calcified. Pacemaker noted on the right. Old pacemaker wires on the left still present. IMPRESSION: COPD. Cardiomegaly without definite CHF.
[2017-10-14] MEDS: Tamsulosin 0.4mg cap ORAL SCH (20:42)
--- NOTE | 2017-10-14 20:45 | Progress Note ---
DATE: 10/14/2017 CARDIOLOGY PROGRESS NOTE SUBJECTIVE: The patient without chest pain and has less shortness of breath. He is having diarrhea. His blood pressure is quite low. OBJECTIVE: VITAL SIGNS: Blood pressure 106/68, pulse 64, respirations 18, and afebrile. NECK: Supple. LUNGS: With coarse breath sounds. CARDIAC: Regular rhythm and rate. Normal S1 and S2. A 1/6 systolic apical murmur. ABDOMEN: Soft. EXTREMITIES: No edema. LABORATORY DATA: White count 8.4 and hemoglobin 11.2. Potassium 3.6, BUN 23 and creatinine 1.5. Pro-natriuretic peptide 28,000. Albumin 2.5. IMPRESSION: 1. Mild chronic systolic and diastolic congestive heart failure. 2. Cardiac defibrillator. 3. Chronic obstructive pulmonary disease exacerbation. 4. Chest radiograph without signs of any acute pneumonia. 5. Probable acute bronchitis. 6. Hypovolemia and associated hypotension. PLAN: 1. Hold antihypertensives and diuretic today. 2. Continue empiric antibiotics. 3. Bronchodilators. 4. Respiratory hygiene. 5. Outpatient defibrillator interrogation. Andrew Long M.D. DR: EDGARDO JOB#: [id number] CC:
[2017-10-15] MEDS: Albuterol/Ipratropium 3ml neb HHN SCH ×4 (00:01→21:18)
--- NOTE | 2017-10-15 03:00 | Consultation ---
DATE OF CONSULTATION: 10/14/2017 PULMONARY CONSULTATION CONSULTING PHYSICIAN: Ajit Wesley M.D. REASON FOR CONSULTATION: Shortness of breath and respiratory insufficiency. HISTORY OF PRESENT ILLNESS: This is an 82-year-old patient, presented through the emergency room. The patient with history of cardiomyopathy and history of cardiac fibrillator. The patient has had progressive shortness of breath for the past few days with increased cough and increased congestion. The patient apparently has been taking increasing diuretics. The patient has had significant weight gain due to fluids. The patient now presents with increasing dyspnea, increasing distress. The patient also with history of underlying COPD. The patient was admitted with diagnosis of possible pneumonia and I was called to assist and evaluate further. The patient denied any sputum production, but does have a cough. The patient denies any chest tightness at this time. PAST MEDICAL HISTORY: Notable for COPD, hypertensive heart disease, CAD, hyperuricemia, degenerative disk disease, CHF, hyperlipidemia, chronic kidney disease, paroxysmal atrial fibrillation, AICD, and ventricular dysrhythmias. MEDICATIONS: Reviewed. ALLERGIES: Reviewed. SOCIAL HISTORY: The patient is a heavy smoker and quit 12 years. No alcohol use. The patient is retired. REVIEW OF SYSTEMS: All 10 points reviewed and otherwise negative. The patient is noted to have increasing shortness of breath, increasing dyspnea, and increasing leg swelling. PHYSICAL EXAMINATION: GENERAL: This is a well-developed male, apparently frail at this time. VITAL SIGNS: Blood pressure 96/52, heart rate 71, respiratory rate 14, saturation 96%, and temperature is 98.1 degrees. HEENT: Negative. Extraocular movements are grossly intact. NECK: Supple. Jugular venous distention is mildly elevated. LUNGS: With scattered rhonchi. Moderate air entry. CARDIAC: S1 and S2. Regular rate and rhythm. Soft systolic murmur at the left parasternal border. ABDOMEN: Soft, nontender, and nondistended. EXTREMITIES: No cyanosis or clubbing. There is mild edema. LABORATORY DATA: Notable for COPD with cardiomegaly without any clear CHF. The patient's white count 8.4, hematocrit 35, and platelets of 237. Chemistries noted and reviewed. BUN 32 and creatinine 1.5. BNP 28,631. Albumin is 2.5. IMPRESSION: 1. Chronic obstructive pulmonary disease without any clear exacerbation. 2. Shortness of breath. 3. Respiratory insufficiency. 4. Possible underlying respiratory infection. 5. Cardiomyopathy. 6. Automatic implantable cardioverter-defibrillator. 7. History of pulmonary edema. 8. Dyspnea. PLAN: Recommended supportive care. Diurese. Empiric antibiotics. Respiratory care. Oxygen therapy. Monitor acid-base. Monitor urine output. Follow up clinically for change and recommend further. DVT prophylaxis. If stabilized, discharge the patient back to home. Ajit Wesley M.D. DR: Ida JOB#: [id number] CC:
[2017-10-15] MEDS: cefTRIAXone 1 GM in D5W 55 ML IVPB SCH (03:22)
[2017-10-15 03:40] VITALS: BP 128/79
[2017-10-15] MEDS: Aspirin EC 81mg tab ORAL SCH (08:24)
[2017-10-15] MEDS: Furosemide 40mg tab ORAL SCH (08:25)
[2017-10-15] MEDS: Heparin 5000 units/ml inj SUBQ SCH ×2 (08:28→20:43)
--- NOTE | 2017-10-15 08:30 | Progress Note ---
DATE: 10/15/2017 CARDIOLOGY PROGRESS NOTE SUBJECTIVE: The patient has no shortness of breath at rest, less congestion and cough. No chest pain. Pulmonary evaluation was appreciated. Blood pressure was low yesterday and his cardiac medications were held. OBJECTIVE: VITAL SIGNS: Blood pressure 128/79, pulse 68, respirations 20, and afebrile. LUNGS: Coarse breath sounds. No wheezing. HEART: Regular rhythm and rate. Normal S1, S2 with a fourth heart sound. ABDOMEN: Soft, nontender. EXTREMITIES: No edema. LABORATORY AND DIAGNOSTIC DATA: Labs pending. Chest x-ray with no acute process. IMPRESSION: 1. Chronic obstructive pulmonary disease exacerbation, improved. 2. Paroxysmal bronchospasm. 3. Acute on chronic diastolic and systolic congestive heart failure. 4. History of cardiac arrhythmias. Atrial and ventricular cardiac defibrillator, status post lead revision. 5. Hypovolemia and dehydration due to diuresis, resulted in hypotension yesterday. PLAN: 1. Resume low dose of diuretic at this time. 2. Titrate based on clinical parameters. 3. Titrate anti-failure regimen. 4. Continue bronchodilators. 5. Empiric antibiotic. 6. Mobilization. 7. Outpatient defibrillator interrogation planned. Andrew Long M.D. DR: EKATERINA JOB#: [id number] CC:
[2017-10-15 08:41] VITALS: BP 119/71
--- NOTE | 2017-10-15 12:11 | Pulmonology Progress Note ---
Assessment/Plan Assessment/Plan IMPRESSION: 1. Chronic obstructive pulmonary disease 2. Shortness of breath. 3. Respiratory insufficiency. 4. Possible underlying respiratory infection. 5. Cardiomyopathy. 6. Automatic implantable cardioverter-defibrillator. 7. History of pulmonary edema. 8. Dyspnea. PLAN care as is respiratory care avoid positive fluid balance DVT prophylaxis impression, plan, and exam edited and reviewed in detail care discussed with RN Subjective ROS Limited/Unobtainable: Yes Allergies: Coded Allergies: No Known Allergies (Verified Allergy, Unknown, 01/15/11) Subjective care reviewed in detail Objective Last 24 Hour Vital Signs Date Time Temp Pulse Resp B/P (MAP) Pulse Ox O2 Delivery O2 Flow Rate FiO2 10/15/17 08:41 98.1 72 14 119/71 98 Room Air 10/15/17 08:25 119/71 10/15/17 07:48 77 16 96 Room Air 10/15/17 07:40 73 16 92 Room Air 10/15/17 03:40 96.6 68 20 128/79 96 Room Air 10/15/17 00:08 Room Air 21 10/15/17 00:08 Room Air 10/14/17 23:46 96.8 67 20 94/47 97 Room Air 10/14/17 21:23 68 16 96 Room Air 10/14/17 21:13 68 16 94 Room Air 21 10/14/17 19:45 97.0 76 20 118/61 97 Room Air 10/14/17 16:13 98.1 71 14 96/52 93 Room Air 10/14/17 15:13 88 18 100 Room Air 10/14/17 15:02 88 18 99 Room Air Intake and Output 10/14/17 10/15/17 19:00 07:00 Intake Total 970 ml 110 ml Output Total 750 ml Balance 970 ml -640 ml Intake Oral 970 ml IV Total 110 ml Output Urine Total 750 ml # Voids 3 5 # Bowel Movements 1 Objective PHYSICAL EXAMINATION: GENERAL: This is a well-developed male, NAD HEENT: Negative. Extraocular movements are grossly intact. NECK: Supple. Jugular venous distention is mildly elevated. LUNGS: With scattered rhonchi. Moderate air entry. without change CARDIAC: S1 and S2. Regular rate and rhythm. Soft systolic murmur at the left parasternal border. ABDOMEN: Soft, nontender, and nondistended. EXTREMITIES: No cyanosis or clubbing. There is mild edema. Microbiology Date/Time Source Procedure Growth Status 10/13/17 22:13 Nasal Nares MRSA Culture - Final NO METHICILLIN RESISTANT STAPH AUREUS... Complete Current Medications Medications (Trade) Dose Ordered Sig/Mansi Route PRN Reason Start Time Stop Time Status Last Admin Dose Admin Acetaminophen/ Hydrocodone Bitart ([place] 5/325) 1 tab Q6H PRN ORAL For Pain 10/14/17 02:30 10/21/17 02:29 Albuterol/ Ipratropium (Albuterol/ Ipratropium) 3 ml Q6HRT HHN 10/14/17 02:15 10/19/17 02:14 10/15/17 07:46 Allopurinol (Allopurinol) 300 mg DAILY ORAL 10/14/17 09:00 11/13/17 08:59 10/15/17 08:25 Aspirin (Ecotrin) 81 mg DAILY ORAL 10/14/17 09:00 11/13/17 08:59 10/15/17 08:24 Benazepril HCl (Lotensin) 40 mg DAILY ORAL 10/14/17 09:00 11/13/17 08:59 10/15/17 08:25 Ceftriaxone Sodium 1 gm/ Dextrose 55 ml @ 110 mls/hr Q24H IVPB 10/14/17 03:00 10/21/17 02:59 10/15/17 03:22 Furosemide (Lasix) 40 mg DAILY ORAL 10/14/17 09:00 11/13/17 08:59 10/15/17 08:25 Heparin Sodium (Porcine) (Heparin 5000 units/ml) 5,000 units EVERY 12 HOURS SUBQ 10/14/17 09:00 11/13/17 08:59 10/15/17 08:28 Tamsulosin HCl (Flomax) 0.4 mg BEDTIME ORAL 10/14/17 21:00 11/13/17 20:59 10/14/17 20:42 JOSÉ ASHLEY Oct 15, 2017 12:11
[2017-10-15 12:30] VITALS: BP 108/67
[2017-10-15 13:11] VITALS: BP 108/67
[2017-10-15 16:22] VITALS: BP 103/61
[2017-10-15] MEDS ORDERED: NS 275ml ONE (17:06)
[2017-10-15] MEDS ORDERED: Tubing IV Secondary IV ONE (17:06)
[2017-10-15 20:00] VITALS: BP 108/66
[2017-10-15] MEDS: Tamsulosin 0.4mg cap ORAL SCH (20:41)
--- NOTE | 2017-10-15 22:47 | History and Physical Report ---
DATE OF ADMISSION: 10/13/2017 CHIEF COMPLAINT: Shortness of breath. HISTORY OF PRESENT ILLNESS: The patient is a pleasant 82-year-old male. He has a history of conduction system disease status post biventricular cardiac defibrillator. He has had progressive shortness of breath. It became worse over the last several days. According to the patient, he has had a mild productive cough with green phlegm. He denies any fevers or chills. He has had no ill contacts. She has noted increasing weight gain and some edema of his legs, this improved with the increase of his diuretic therapy, but the shortness of breath did not improve. She presented to the emergency room. On evaluation there, the white count was normal. His natriuretic peptide level was 20,000. Chest x-ray showed cardiomegaly with some possible CHF. The patient has now been admitted for further evaluation and care. PAST MEDICAL HISTORY: As above. History of COPD, hypertension, ischemic cardiomyopathy, history of chronic kidney disease, atrial fibrillation and hyperlipidemia. PAST SURGICAL HISTORY: None. CURRENT MEDICATIONS: Reconciled and reviewed. SOCIAL HISTORY: A 20 pack-year history of smoking, but the patient has now quit. No alcohol. No drugs. REVIEW OF SYSTEMS: GENERAL: No fever or chills. HEENT: No headaches or visual changes. CARDIOPULMONARY: No chest pain. Positive shortness of breath. Positive lower extremity edema. Positive productive cough. GASTROINTESTINAL: No nausea or vomiting. GENITOURINARY: No urgency or frequency. MUSCULOSKELETAL: No joint pain or swelling. NEUROLOGIC: No evidence of seizures. PHYSICAL EXAMINATION: GENERAL: The patient well developed male, in no apparent distress. VITAL SIGNS: Temperature was 98.1 degrees, pulse 72, respirations 14, blood pressure 119/71. HEART: Regular rate and rhythm. LUNGS: Clear anteriorly. ABDOMEN: Soft, nontender and nondistended. EXTREMITIES: Without clubbing, cyanosis, or edema. LABORATORY AND DIAGNOSTIC DATA: Chest x-ray showed mild congestive heart failure. White count was 8 and hemoglobin 11. Creatinine was 1.5. Natriuretic peptide level was 20,000. ASSESSMENT AND PLAN: This is a pleasant male with complaints of shortness of breath secondary to congestive heart failure exacerbation. 1. Congestive heart failure exacerbation. 2. Bronchitis. 3. Acute renal failure. 4. Hypertensive heart disease. 5. History of chronic obstructive pulmonary disease. PLAN: 1. Intravenous diuresis. 2. Antibiotics. 3. Respiratory treatments. 4. Supplemental oxygen. 5. Monitor laboratories and renal function. 6. We will trend BNP and chest x-ray. Alexis Kaufman M.D. DR: ENOC JOB#: [id number] CC:
[2017-10-16] VITALS: BP 129/86
[2017-10-16] MEDS: Albuterol/Ipratropium 3ml neb HHN SCH ×3 (00:37→12:48)
[2017-10-16] MEDS: cefTRIAXone 1 GM in D5W 55 ML IVPB SCH (03:14)
[2017-10-16 04:00] VITALS: BP 112/73
[2017-10-16 08:00] VITALS: BP 117/72
[2017-10-16] MEDS: Aspirin EC 81mg tab ORAL SCH (08:24)
[2017-10-16] MEDS: Furosemide 40mg tab ORAL SCH (08:25)
[2017-10-16] MEDS: Heparin 5000 units/ml inj SUBQ SCH (08:26)
[2017-10-16] MEDS ORDERED: LEVAQUIN250 M1 ORAL (08:31)
--- NOTE | 2017-10-16 09:14 | Pulmonology Progress Note ---
Assessment/Plan Assessment/Plan IMPRESSION: 1. Chronic obstructive pulmonary disease 2. Shortness of breath. 3. Respiratory insufficiency. 4. Possible underlying respiratory infection. 5. Cardiomyopathy. 6. Automatic implantable cardioverter-defibrillator. 7. History of pulmonary edema. 8. Dyspnea. PLAN care as is without change respiratory care noted avoid positive fluid balance DVT prophylaxis hope to proceed with dc planning soon impression, plan, and exam edited and reviewed in detail care discussed with RN Subjective Allergies: Coded Allergies: No Known Allergies (Verified Allergy, Unknown, 01/15/11) Subjective care reviewed in detail no distress events noted Objective Last 24 Hour Vital Signs Date Time Temp Pulse Resp B/P (MAP) Pulse Ox O2 Delivery O2 Flow Rate FiO2 10/16/17 08:25 117/72 10/16/17 08:00 97.9 88 21 117/72 94 Room Air 10/16/17 07:47 78 16 97 Room Air 10/16/17 07:40 82 16 95 Room Air 21 10/16/17 04:00 97.9 83 21 112/73 95 10/16/17 00:44 80 16 98 Room Air 10/16/17 00:37 74 16 97 Room Air 21 10/16/17 00:00 99.0 91 21 129/86 95 10/15/17 21:25 84 16 99 Room Air 10/15/17 21:18 71 16 98 Room Air 21 10/15/17 20:00 99.3 101 20 108/66 94 10/15/17 16:22 98.8 91 16 103/61 96 Room Air 10/15/17 13:44 81 16 96 Room Air 10/15/17 13:37 70 16 92 Room Air 21 10/15/17 13:11 98.2 77 18 108/67 97 Room Air 10/15/17 12:30 98.2 77 18 108/67 97 Room Air Intake and Output 10/15/17 10/16/17 19:00 07:00 Intake Total 1200 ml 110 ml Output Total 900 ml 1200 ml Balance 300 ml -1090 ml Intake Oral 1200 ml IV Total 110 ml Output Urine Total 900 ml 1200 ml Objective PHYSICAL EXAMINATION: GENERAL: This is a well-developed male, NAD HEENT: Negative. Extraocular movements are grossly intact. NECK: Supple. Jugular venous distention is mildly elevated. LUNGS: With scattered rhonchi. Moderate air entry. without change CARDIAC: S1 and S2. Regular rate and rhythm. Soft systolic murmur at the left parasternal border. ABDOMEN: Soft, nontender, and nondistended. EXTREMITIES: No cyanosis or clubbing. There is mild edema. Microbiology Date/Time Source Procedure Growth Status 10/13/17 22:13 Nasal Nares MRSA Culture - Final NO METHICILLIN RESISTANT STAPH AUREUS... Complete 10/13/17 22:13 Rectum VRE Culture - Final NO VANCOMYCIN RESISTANT ENTEROCOCCUS ... Complete Current Medications Medications (Trade) Dose Ordered Sig/Mansi Route PRN Reason Start Time Stop Time Status Last Admin Dose Admin Acetaminophen/ Hydrocodone Bitart ([place] 5/325) 1 tab Q6H PRN ORAL For Pain 10/14/17 02:30 10/21/17 02:29 Albuterol/ Ipratropium (Albuterol/ Ipratropium) 3 ml Q6HRT HHN 10/14/17 02:15 10/19/17 02:14 10/16/17 07:40 Allopurinol (Allopurinol) 300 mg DAILY ORAL 10/14/17 09:00 11/13/17 08:59 10/16/17 08:24 Aspirin (Ecotrin) 81 mg DAILY ORAL 10/14/17 09:00 11/13/17 08:59 10/16/17 08:24 Benazepril HCl (Lotensin) 40 mg DAILY ORAL 10/14/17 09:00 11/13/17 08:59 10/16/17 08:25 Ceftriaxone Sodium 1 gm/ Dextrose 55 ml @ 110 mls/hr Q24H IVPB 10/14/17 03:00 10/21/17 02:59 10/16/17 03:14 Furosemide (Lasix) 40 mg DAILY ORAL 10/14/17 09:00 11/13/17 08:59 10/16/17 08:25 Heparin Sodium (Porcine) (Heparin 5000 units/ml) 5,000 units EVERY 12 HOURS SUBQ 10/14/17 09:00 11/13/17 08:59 10/16/17 08:26 Tamsulosin HCl (Flomax) 0.4 mg BEDTIME ORAL 10/14/17 21:00 11/13/17 20:59 10/15/17 20:41 JOSÉ ASHLEY Oct 16, 2017 09:14
[2017-10-16 12:00] VITALS: BP 116/79
--- NOTE | 2017-10-16 12:13 | Diagnostic Imaging Report ---
Indication: Cough Technique: XRAY Chest 1v Comparison: 10/13/2017 Findings: Heart is enlarged but stable in size compared to the prior exam. Atherosclerotic calcifications again noted in the aortic arch. Right chest ICD and abandoned left sided pacer leads unchanged in position there is hyperexpansion of the lungs. There is no definite focal airspace consolidation however evaluation of the retrocardiac lung is limited. No pleural effusion. No pneumothorax. Impression: Cardiomegaly without definite evidence of CHF/pulmonary edema. No definite focal airspace consolidation however evaluation of the retrocardiac lung is limited. No pleural effusion or pneumothorax. Consider PA and lateral views for better assessment as clinically indicated.
--- NOTE | 2017-10-17 01:45 | Discharge Summary ---
DATE OF ADMISSION: 10/13/2017 DATE OF DISCHARGE: 10/16/2017 ADMISSION DIAGNOSES: 1. Congestive heart failure exacerbation. 2. Chronic obstructive pulmonary disease exacerbation. 3. Bronchitis/pneumonia. 4. Hypertension. DISCHARGE DIAGNOSES: 1. Congestive heart failure exacerbation. 2. Chronic obstructive pulmonary disease exacerbation. 3. Bronchitis/pneumonia. 4. Hypertension. HOSPITAL COURSE: The patient is a pleasant 82-year-old male, who presented with complaints of shortness of breath secondary to CHF exacerbation and bronchitis/pneumonia. He received intravenous diuretic therapy as well as IV antibiotics. He improved quickly and after several days he is back to baseline. The patient will be discharged home to complete a full week of antibiotic therapy for possible community-acquired pneumonia and bronchitis. Continue oral diuretic therapy. He has been asked to follow up in one to two weeks in the office. DISCHARGE MEDICATIONS: Please see discharge medication list for discharge medications. DIET: Cardiac diet. ACTIVITIES: Ad-lupe. Alexis Kaufman M.D. DR: PRACHI JOB#: [id number] CC:
== END 2017-10-16 16:35 | disposition home or self-care (01) | DRG 291 ==
LOC: 4E 17:58
DX: I13.0 Hypertensive heart and chronic kidney disease with heart failure and stage 1 through stage 4 chronic kidney disease, or unspecified chronic kidney disease (principal); J18.9 Pneumonia, unspecified organism; I47.2 Ventricular tachycardia; N17.9 Acute kidney failure, unspecified; I95.9 Hypotension, unspecified; E86.0 Dehydration; J44.0 Chronic obstructive pulmonary disease with (acute) lower respiratory infection; I48.0 Paroxysmal atrial fibrillation; I50.43 Acute on chronic combined systolic (congestive) and diastolic (congestive) heart failure; J44.1 Chronic obstructive pulmonary disease with (acute) exacerbation; I25.5 Ischemic cardiomyopathy; I73.9 Peripheral vascular disease, unspecified; I25.10 Atherosclerotic heart disease of native coronary artery without angina pectoris; J20.9 Acute bronchitis, unspecified; Z95.810 Presence of automatic (implantable) cardiac defibrillator; E78.5 Hyperlipidemia, unspecified; E86.1 Hypovolemia; N18.9 Chronic kidney disease, unspecified; Z87.891 Personal history of nicotine dependence; Z86.73 Personal history of transient ischemic attack (TIA), and cerebral infarction without residual deficits
CPT/HCPCS: 36415; 71010; 71020; 80053; 81001; 83880; 85025; 87070; 87081; 87205; 94640; 94664; J7620; J8499